=== PATIENT | female | born 1945 | race Caucasian/White ===

== ENCOUNTER 2018-03-17 05:54 | Inpatient (IN) | payer MEDICARE ==
--- OUTSIDE RECORDS SUMMARY | 2018-03-17 05:58 | XMS REPORT ---
:1945 External Reference #:[id number] Author Organization [facility] Address [address] [address] Phone [phone] Care Team Providers Name Role Phone Amberly Villalpando MD Primary Care Physician Unavailable Payers Type Date Identification Payment Subscriber Numbers Provider Health Maintenance Effective: Policy Number: Medicare Azar Vang [employer] ([place] 11/25/2012 [id number] [facility] Group Number: [id number] [address] [address] PayID: [id number] PRICE [place] [id number] Health Maintenance Effective: Policy Number: Medicare Azar Krishna [employer] ([place] 11/25/2011 [id number] [employer]po [employer] Expires: 11/24/2012 PayID: [id number] [address] [address] PRICE [place] [phone] Medigap Part B Effective: Policy Number: Azar Krishna 01/11/2010 [id number] [employer]po [employer] Expires: 02/23/2012 Group Name: [facility] [address] [address] PayID: [id number] PRICE [place] [id number] Advance Directives Type Date Description Status Comment Other Directive 08/11/2017 Health Care Proxy Current and Verified Other Directive 08/11/2017 Health Care Proxy Current and Verified Other Directive 07/31/2002 Health Care Proxy Current and Verified Problems Date Description Provider Status Onset: 10/16/2010 Benign essential hypertension Amberly Villalpando M.D. Active Onset: 10/16/2010 Restless legs Amberly Villalpando M.D. Active Onset: 07/19/2015 Strain of rotator cuff capsule Capo Mcarthur M.D. Active Onset: 10/27/2015 Essential hypertension Amberly Villalpando M.D. Active Onset: 06/06/2016 Arthralgia of the pelvic region and Capo Mcarthur M.D. Active thigh Onset: 09/26/2016 Localized, primary osteoarthritis of Capo Mcarthur M.D. Active the pelvic region and thigh Onset: 09/26/2016 Prosthetic arthroplasty of the hip Capo Mcarthur M.D. Active Onset: 08/28/2017 Sciatica Capo Mcarthur M.D. Active Onset: 06/17/2017 Peripheral vascular disease Moses Vincent M.D. Active Onset: 05/20/2017 Lumbar radiculopathy Moses Vincent M.D. Active Family History Date Family Member(s) Problem(s) Comments General Heart Disease General Diabetes General Cancer : (0090) Father due to Heart Disease : (age 90 Mother due to CHF Years) Mother due to () Hypertension Mother due to Hip () fracture Mother due to Tremor () - may have had head tremor at the end of her life Siblings 3 all passed : (age 65 First Brother due to Heart CAD onset 40s, CABG, Years) Disease DM, CHF : (age 34 Second Brother due to Kidney DM Years) Disease : (age 43 Third Brother due to Heart CAD, CABG Years) Disease Social History Type Date Description Comments Marital Status Lives With 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 Copy on file at [facility] [place] [facility] Cigarette Use Never Smoked Cigarettes ETOH Use Denies alcohol use Smoking Patient has never smoked Recreational Drug Use Denies Drug Use Daily Caffeine Consumes on average 2 cups of regular coffee per day Exercise Type/Frequency Exercises regularly General Hx Text Health Care Proxy Allergies, Adverse Reactions, Alerts Date Description Reaction Status Severity Comments 03/22/2010 NKDA active Medications Medication Date Status Form Strength Qnty SIG Indications Ordering Provider Tramadol HCL 01/22 Active Tablets 50mg 180ta take one to M79.609 Crystal bs two tablets Jose, by mouth M.D. every 6 hours - maximum daily dose of 6 per day Atorvastatin 09/02 Active Tablets 10mg 90tab 1 by mouth Amberly Calcium s every day Aurelio Villalpando Gabapentin 08/28 Active Capsules 300mg 180ca 2 by mouth M54.31 Amberly ps every night Kwasi at bedtime M.Priscilla Hydrocodone-Acet 05/02 Active Tablets 5-325mg 30tab 1 by mouth M54.16 Amberly aminophen s three times Cotton, a day as M.D. needed Amoxicillin 03/01 Active Capsules 500mg 4caps 4 tablets 1 hour before Lyubov, dental work M.DSarah Clearlax 03/06 Active Powder 1 capful every day Aurelio Villalpando Losartan 03/06 Active Tablets 50-12.5mg 90tab Take 1 I10 Amberly Potassium/Hydroc s Tablet By Kwasi, hlorothiazide Mouth Every M.D. Day Aspirin 06/03 Active Tablets 81mg [address] once daily Aurelio Villalpando Multivitamins Active Tablets 90tab 1 po qd Unknown /0000 s Ibuprofen Active prn Unknown / Amlodipine Active Tablets 5mg 90tab Take 1 I10 Amberly Besylate s Tablet By Kwasi, Mouth Every M.D. Day Naproxen 05/20 Hx Tablets 500mg 60tab 1 by mouth M54.16 s twice a day Melisa, - after meals M.D. 06/17 Cyclobenzaprine 03/27 Hx Tablets 10mg 60tab take 1 tab M25.551 Crystal HCL s by mouth 2 Jose, - times a day M.D. 10/31 as needed Trazodone HCL 10/29 Hx Tablets 50mg 30tab Take 1/2-1 G47.00 s Tablet By Cotton, - Mouth At M.D. 08/27 Bedtime Flexeril 09/26 Hx Tablets 10mg 60tab 1 by mouth s two times a Lyuobv, - day as M.D. 10/29 needed for spasms Percocet 08/21 Hx Tablets 5-325mg 70tab take 1-2 M16.11 s pills every Lyubov, - 4-6 hours as M.D. 10/29 needed pain Coumadin 08/21 Hx Tablets 2mg 60tab Take 1-3 M16.11 s tablets by Lyubov, - mouth at 5 M.D. 11/03 pm daily as directed not taking Colace 08/21 Hx Capsules 100mg 60cap one capsule M16.11 s two times a Lyubov, - day as M.D. 10/29 needed constipation Naproxen 06/21 Hx Tablets 500mg 500mg with Crystal food prn ( Jose, - not taking) M.D. 10/29 Atorvastatin 10/27 Hx Tablets 10mg 90tab 1 by mouth E78.5 Amberly Calcium s every day Vickey Villalpando M.DSarah 05/27 Naproxen 08/16 Hx Tablets 500mg 60tab Take 1 M75.111 s Tablet By Lyubov, - Mouth Two M.D. 07/08 Times Daily Amlodipine 04/21 Hx Tablets 5mg 90tab 1 by mouth I10 Amberly Besylate s every day Vickey Villalpando.Priscilla 02/27 Triamcinolone 04/06 Hx Cream 0.1% 80gm apply thin 782.1 Amberly Acetonide /2014 film twice Kwasi, - daily M.D. 04/30 Hydrocodone-Acet 10/07 Hx Tablets 5-325mg 60tab one tablet 715.00 Randi aminophen s by mouth Varn, N.P. - twice daily 11/11 as needed for pain Fish Oil 03/18 Hx Capsules 1200mg 1 by mouth Amberly /2014 every day Vickey Villalpando M.D. 08/27 Omeprazole 03/18 Hx Capsules 20mg 90cap 1 by mouth Amberly /2014 DR s every other Kwasi, - day M.D. 05/27 Ketoconazole 11/12 Hx Cream 2% 30gm apply thin 782.1 Amberly film twice Cotton, - daily M.D. 03/12 Zolpidem 11/12 Hx Tablets 10mg 30tab 1/2 - 1 780.52 Amberly Tartrate s tablet once Cotton, - daily at M.D. 05/15 bedtime Alprazolam 11/09 Hx Tablets 0.25mg 30tab 1 by mouth 300.00 Amberly /2010 s every 8 Cotton, - hours as M.D. 03/06 needed Amlodipine 11/09 Hx Tablets 2.5mg 90tab take one 401.1 Amberly Bes s tablet by Cotton, - mouth once M.D. 04/21 Ketoconazole 10/16 Hx Cream 2% 30gm apply thin 782.9 film twice Cotton, - daily M.D. 11/27 Tramadol HCL 03/23 Hx Tablets 50mg 45tab take one to M79.609 Crystal s two tablets Jose, - by mouth M.D. 08/27 every hours - maximum daily dose of 6 per day Diovan HCT 03/22 Hx Tablets 160-12.5m 90tab 1 tablet 401.1 g s once daily Cotton, - M.D. 03/06 Gabapentin 03/22 Hx Capsules 300mg 180ca take one to ps two capsules Cotton, - by mouth at M.D. 10/31 bed Calcium Hx 600mg 2 po qd Unknown /0000 - 03/12 Glucosamine Hx Tablets 1000mg 1 po qd Unknown Chondroitin /0000 &MSM - 10/07 Fish Oil Hx 768mg 1 po qd Unknown /0000 - 03/18 Melatonin 00 Hx Capsules 5mg 1 by mouth Unknown /0000 every night - at bedtime 06/21 not taking Benadryl Hx Capsules 25mg take 1-2 Unknown /0000 tablets up - to every 6 10/29 hours needed for ithching this will make you drowsy may save until evening Tylenol 8 Hour 00 Hx Tablets 650mg 1 by mouth Unknown Arthritis Pain /0000 ER before every - infusion 03/26 Medications Administered in Office Medication Date Status Form Strength Qnty SIG Indications Ordering Provider Depomedrol Administered Injection Aura 40MG 015 KAT Boucher Immunizations CPT Code Status Date Vaccine Lot # [id number] Given 09/16/2017 Influenza Virus Vaccine, Quadrivalent, Split, [id number] Preservative Free 42834 Given 10/27/2015 Pneumococcal Conjugate Vaccine 13 Valent For [id number] Intramuscular Use 29944 Given 09/02/2015 Influenza Virus Vaccine, Quadrivalent, Split, [id number] Preservative Free 71138 Given 10/07/2014 Tdap - Tetanus/Diptheria/Acellular Pertussis [id number] 37713 Given 08/20/2014 Influenza Virus Vaccine, Quadrivalent, Split, [id number] Preservative Free 14519 Given 09/11/2013 Flu Vaccine Split Virus Preservative Free For Indiv 3Yr Older 24740 Given 03/12/2013 Zoster (Zostavax) [id number] 35044 Given 09/04/2012 Pneumonia Vaccine [id number] Q2037 Given 08/30/2012 Fluvirin Im 3Yrs And Older [id number] 94711 Given 09/15/2011 Influenza Virus 3Yrs & Over [id number] 37814 Given 09/01/2010 Influenza Virus 3Yrs & Over 41810 Given 08/30/2009 Influenza Virus 3Yrs & Over 24912 Given 09/23/2008 Influenza Virus 3Yrs & Over 18252 Given 09/22/2007 Influenza Virus 3Yrs & Over 26517 Given 09/18/2006 Influenza Virus 3Yrs & Over 96918 Given 09/18/2006 Influenza Virus 3Yrs & Over Vital Signs Date Vital Result Comment 03/03/2018 Weight 173.50 lb Heart Rate 94 /min BP Systolic 126 mmHg BP Diastolic 70 mmHg Body Temperature 97.6 F O2 % BldC Oximetry 98 % 02/26/2018 Height 62 inches 5'2" Weight 174.00 lb BP Systolic 134 mmHg BP Diastolic 72 mmHg Respiratory Rate 20 /min Pain Level 8 BMI (Body Mass Index) 31.8 kg/m2 10/31/2017 Height 62 inches 5'2" Weight 172.00 lb Heart Rate 71 /min BP Systolic 130 mmHg BP Diastolic 80 mmHg Body Temperature 98.0 F O2 % BldC Oximetry 99 % BMI (Body Mass Index) 31.5 kg/m2 08/28/2017 Height 62 inches 5'2" Weight 167.00 lb BP Systolic 124 mmHg BP Diastolic 70 mmHg Respiratory Rate 18 /min Pain Level 0 BMI (Body Mass Index) 30.5 kg/m2 06/17/2017 Height 62 inches 5'2" Weight 167.00 lb Heart Rate 82 /min BP Systolic Sitting 150 mmHg BP Diastolic Sitting 90 mmHg Pain Level 8 BMI (Body Mass Index) 30.5 kg/m2 05/20/2017 Height 62 inches 5'2" Weight 167.00 lb Heart Rate 78 /min BP Systolic Sitting 148 mmHg BP Diastolic Sitting 80 mmHg Pain Level 7 BMI (Body Mass Index) 30.5 kg/m2 05/02/2017 Weight 165.00 lb Heart Rate 82 /min BP Systolic Sitting 120 mmHg BP Diastolic Sitting 70 mmHg Respiratory Rate 16 /min Pain Level 8 03/27/2017 Height 62 inches 5'2" Weight 160.00 lb Heart Rate 81 /min BP Systolic 152 mmHg BP Diastolic 76 mmHg Body Temperature 97.3 F BMI (Body Mass Index) 29.3 kg/m2 10/31/2016 Height 62 inches 5'2" Weight 165.00 lb Heart Rate 76 /min Respiratory Rate 18 /min Pain Level 0 BMI (Body Mass Index) 30.2 kg/m2 10/29/2016 Height 61.5 inches 5'1.50" Weight 165.00 lb Heart Rate 86 /min BP Systolic Sitting 130 mmHg BP Diastolic Sitting 84 mmHg O2 % BldC Oximetry 98 % BMI (Body Mass Index) 30.7 kg/m2 09/26/2016 Height 62.5 inches Heart Rate 78 /min BP Systolic Sitting 142 mmHg BP Diastolic Sitting 78 mmHg Body Temperature 98.4 F Pain Level 0 08/21/2016 Height 62.5 inches 5'2.50" Weight 155.00 lb Heart Rate 79 /min BP Systolic 133 mmHg BP Diastolic 74 mmHg Pain Level 8 BMI (Body Mass Index) 27.9 kg/m2 08/02/2016 Weight 164.00 lb with shoes Heart Rate 68 /min BP Systolic Sitting 120 mmHg BP Diastolic Sitting 72 mmHg O2 % BldC Oximetry 99 % 06/21/2016 Weight 166.00 lb Respiratory Rate 16 /min Pain Level 5 06/06/2016 Weight 166.00 lb Pain Level 5 04/30/2016 Weight 166.00 lb with shoes Heart Rate 98 /min BP Systolic Sitting 130 mmHg BP Diastolic Sitting 78 mmHg Body Temperature 97.5 F O2 % BldC Oximetry 97 % 03/28/2016 Height 62.5 inches 5'2.50" Weight 165.00 lb Pain Level 7 between 5 and 9 BMI (Body Mass Index) 29.7 kg/m2 02/29/2016 Height 62.5 inches 5'2.50" Weight 165.00 lb Heart Rate 73 /min BP Systolic 134 mmHg BP Diastolic 82 mmHg Pain Level 6 BMI (Body Mass Index) 29.7 kg/m2 10/27/2015 Height 62.5 inches 5'2.50" Weight 153.00 lb Heart Rate 73 /min BP Systolic Sitting 144 mmHg BP Diastolic Sitting 76 mmHg Body Temperature 98.2 F O2 % BldC Oximetry 98 % BMI (Body Mass Index) 27.5 kg/m2 10/05/2015 Height 62.5 inches 5'2.50" Weight 150.00 lb Pain Level 6 BMI (Body Mass Index) 27.0 kg/m2 08/16/2015 Height 62.5 inches 5'2.50" Weight 160.00 lb Pain Level 8 BMI (Body Mass Index) 28.8 kg/m2 07/19/2015 Height 62.5 inches 5'2.50" Weight 160.00 lb Heart Rate 79 /min BP Systolic 160 mmHg BP Diastolic 90 mmHg BMI (Body Mass Index) 28.8 kg/m2 04/21/2015 Heart Rate 83 /min BP Systolic Sitting 132 mmHg BP Diastolic Sitting 77 mmHg 04/06/2015 Weight 168.50 lb Heart Rate 77 /min BP Systolic Sitting 172 mmHg BP Diastolic Sitting 94 mmHg 10/07/2014 Height 62.25 inches 5'2.25" Weight 165.00 lb Heart Rate 78 /min BP Systolic Sitting 126 mmHg BP Diastolic Sitting 80 mmHg Body Temperature 98.3 F BMI (Body Mass Index) 29.9 kg/m2 04/29/2014 Height 62.25 inches 5'2.25" Weight 163.00 lb Heart Rate 72 /min BP Systolic Sitting 106 mmHg BP Diastolic Sitting 78 mmHg Body Temperature 98.1 F BMI (Body Mass Index) 29.6 kg/m2 03/18/2014 Weight 168.88 lb Heart Rate 76 /min BP Systolic 132 mmHg BP Diastolic 86 mmHg Respiratory Rate 16 /min Body Temperature 98.1 F 09/11/2013 Height 62 inches 5'2" Weight 157.00 lb Heart Rate 86 /min BP Systolic Sitting 130 mmHg BP Diastolic Sitting 86 mmHg BMI (Body Mass Index) 28.7 kg/m2 03/12/2013 Weight 162.00 lb Heart Rate 72 /min BP Systolic Sitting 142 mmHg BP Diastolic Sitting 88 mmHg 09/04/2012 Height 62.50 inches 5'2.50" Weight 164.00 lb Heart Rate 76 /min BP Systolic Sitting 118 mmHg BP Diastolic Sitting 66 mmHg BMI (Body Mass Index) 29.5 kg/m2 05/15/2012 Height 62.50 inches 5'2.50" Weight 160.00 lb Heart Rate 74 /min BP Systolic Sitting 128 mmHg BP Diastolic Sitting 78 mmHg BMI (Body Mass Index) 28.8 kg/m2 11/12/2011 Height 62.50 inches 5'2.50" Weight 161.00 lb BP Systolic Sitting 118 mmHg l BP Diastolic Sitting 74 mmHg l BMI (Body Mass Index) 29.0 kg/m2 03/06/2011 Weight 162.50 lb Heart Rate 76 /min BP Systolic 114 mmHg BP Diastolic 70 mmHg 11/27/2010 Weight 165.00 lb Heart Rate 76 /min BP Systolic 138 mmHg BP Diastolic 88 mmHg 11/09/2010 Weight 162.00 lb Heart Rate 82 /min BP Systolic 180 mmHg BP Diastolic 106 mmHg BP Systolic Sitting 150 mmHg after 10 minutes BP Diastolic Sitting 106 mmHg after 10 minutes 10/16/2010 Height 62.5 inches 5'2.50" Weight 162.75 lb Heart Rate 72 /min BP Systolic 122 mmHg BP Diastolic 82 mmHg BMI (Body Mass Index) 29.3 kg/m2 03/23/2010 Weight 160.75 lb Heart Rate 68 /min BP Systolic Recheck 132 mmHg BP Diastolic Recheck 80 mmHg Results Test Date Test Result H/L Range Note Lipid Profile (Trig/Chol/HDL) 10/23/2017 Triglycerides 57 mg/dL 1 Cholesterol 141 mg/dL 2 HDL Cholesterol 70.6 mg/dL 3 LDL Cholesterol 59 mg/dL 4 Comp Metabolic Panel 10/23/2017 Sodium 139 mmol/L 133-145 Potassium 4.3 mmol/L 3.5-5.0 Chloride 105 mmol/L 101-111 Co2 Carbon Dioxide 30 mmol/L 22-32 Anion Gap 4 mmol/L 2-11 Glucose 78 mg/dL 70-100 Blood Urea Nitrogen 18 mg/dL 6-24 Creatinine 0.78 mg/dL 0.51-0.95 BUN/Creatinine Ratio 23.1 High 8-20 Calcium 9.1 mg/dL 8.6-10.3 Total Protein 6.9 g/dL 6.4-8.9 Albumin 3.9 g/dL 3.2-5.2 Globulin 3.0 g/dL 2-4 Albumin/Globulin Ratio 1.3 1-3 Total Bilirubin 0.70 mg/dL 0.2-1.0 Alkaline Phosphatase 63 U/L 34-104 Alt 21 U/L 7-52 Ast 20 U/L 13-39 Egfr Non- 73.0 >60 Egfr 93.9 >60 5 Lipid Profile (Trig/Chol/HDL) 03/21/2017 Triglycerides 53 mg/dL 6 Cholesterol 175 mg/dL 7 HDL Cholesterol 70.3 mg/dL 8 LDL Cholesterol 94 mg/dL 9 Comp Metabolic Panel 03/21/2017 Sodium 138 mmol/L 133-145 Potassium 4.3 mmol/L 3.5-5.0 Chloride 102 mmol/L 101-111 Co2 Carbon Dioxide 30 mmol/L 22-32 Anion Gap 6 mmol/L 2-11 Glucose 84 mg/dL 70-100 Blood Urea Nitrogen 21 mg/dL 6-24 Creatinine 0.84 mg/dL 0.51-0.95 BUN/Creatinine Ratio 25.0 High 8-20 Calcium 9.3 mg/dL 8.6-10.3 Total Protein 7.0 g/dL 6.4-8.9 Albumin 4.0 g/dL 3.2-5.2 Globulin 3.0 g/dL 2-4 Albumin/Globulin Ratio 1.3 1-3 Total Bilirubin 0.40 mg/dL 0.2-1.0 Alkaline Phosphatase 66 U/L 34-104 Alt 17 U/L 7-52 Ast 18 U/L 13-39 Egfr Non- 67.0 >60 Egfr 86.2 >60 10 Laboratory test 03/21/2017 TSH (Thyroid Stim 2.89 mcIU/mL 0.34-5.60 11 finding Horm) Inr/Protime 09/17/2016 Inr 1.08 0.89-1.11 Inr/Protime 08/22/2016 Inr 0.98 0.89-1.11 12 Laboratory test 08/22/2016 Partial Thrombo Time 29.8 seconds 26.0-36.3 12, 13 finding PTT Type & Screen 08/22/2016 Patient Blood Type O Positive 12 Antibody Screen NEGATIVE 12 Urinalysis Profile 08/22/2016 Urine Color Yellow 12 Urine Appearance Clear 12 Urine Specific [place] 1.013 1.010-1.030 12 Urine pH 7.0 5-9 12 Urine Urobilinogen Negative Negative 12 Urine Ketones Negative Negative 12 Urine Protein Negative Negative 12 Urine Leukocytes Negative Negative 12 Urine Blood Negative Negative 12 Urine Nitrite Negative Negative 12 Urine Bilirubin Negative Negative 12 Urine Glucose Negative Negative 12 CBC Auto Diff 08/02/2016 White Blood Count 5.0 10^3/uL 3.5-10.8 Red Blood Count 4.29 10^6/uL 4.0-5.4 Hemoglobin 12.9 g/dL 12.0-16.0 Hematocrit 40 % 35-47 Mean Corpuscular Volume 92 fL 80-97 Mean Corpuscular Hemoglobin 30 pg 27-31 Mean Corpuscular HGB Conc 33 g/dL 31-36 Red Cell Distribution Width 13 % 10.5-15 Platelet Count 293 10^3/uL 150-450 Mean Platelet Volume 8 um3 7.4-10.4 Abs Neutrophils 3.2 10^3/uL 1.5-7.7 Abs Lymphocytes 1.3 10^3/uL 1.0-4.8 Abs Monocytes 0.3 10^3/uL 0-0.8 Abs Eosinophils 0.1 10^3/uL 0-0.6 Abs Basophils 0.1 10^3/uL 0-0.2 Abs Nucleated RBC 0 10^3/uL Granulocyte % 65.0 % 38-83 Lymphocyte % 25.8 % 25-47 Monocyte % 6.9 % 1-9 Eosinophil % 1.1 % 0-6 Basophil % 1.2 % 0-2 Nucleated Red Blood Cells % 0 Comp Metabolic Panel 08/02/2016 Sodium 136 mmol/L 133-145 Potassium 4.2 mmol/L 3.5-5.0 Chloride 101 mmol/L 101-111 Co2 Carbon Dioxide 31 mmol/L 22-32 Anion Gap 4 mmol/L 2-11 Glucose 83 mg/dL 70-100 Blood Urea Nitrogen 17 mg/dL 6-24 Creatinine 0.80 mg/dL 0.51-0.95 BUN/Creatinine Ratio 21.3 High 8-20 Calcium 9.2 mg/dL 8.6-10.3 Total Protein 6.6 g/dL 6.4-8.9 Albumin 4.0 g/dL 3.2-5.2 Globulin 2.6 g/dL 2-4 Albumin/Globulin Ratio 1.5 1-3 Total Bilirubin 0.30 mg/dL 0.2-1.0 Alkaline Phosphatase 67 U/L 34-104 Alt 21 U/L 7-52 Ast 17 U/L 13-39 Egfr Non- 71.1 >60 Egfr 91.5 >60 14 Inr/Protime 08/02/2016 Inr 0.98 0.89-1.11 Urine Culture And 08/02/2016 Urine Culture SEE RESULT BELOW 15 Sensitivities Type & Screen 08/02/2016 Patient Blood O Positive Type Antibody Screen NEGATIVE Comp Metabolic Panel 02/24/2016 Sodium 138 mmol/L 133-145 Potassium 4.2 mmol/L 3.5-5.0 Chloride 102 mmol/L 101-111 Co2 Carbon Dioxide 31 mmol/L 22-32 Anion Gap 5 mmol/L 2-11 Glucose 85 mg/dL 70-100 Blood Urea Nitrogen 20 mg/dL 6-24 Creatinine 0.91 mg/dL 0.51-0.95 BUN/Creatinine Ratio 22.0 High 8-20 Calcium 9.5 mg/dL 8.6-10.3 Total Protein 6.9 g/dL 6.4-8.9 Albumin 4.1 g/dL 3.2-5.2 Globulin 2.8 g/dL 2-4 Albumin/Globulin Ratio 1.5 1-3 Total Bilirubin 0.50 mg/dL 0.2-1.0 Alkaline Phosphatase 66 U/L 34-104 Alt 18 U/L 7-52 Ast 17 U/L 13-39 Egfr Non- 61.5 >60 Egfr 79.1 >60 16 Lipid Profile (Trig/Chol/HDL) 02/24/2016 Triglycerides 64 mg/dL 17 Cholesterol 141 mg/dL 18 HDL Cholesterol 56.0 mg/dL 19 LDL Cholesterol 72 mg/dL 20 Comp Metabolic Panel 03/28/2015 Sodium 140 mmol/L 133-145 21 Potassium 5.0 mmol/L 3.5-5.0 21 Chloride 104 mmol/L 101-111 21 Co2 Carbon Dioxide 32 mmol/L 22-32 21 Anion Gap 4 mmol/L 2-11 21 Glucose 86 mg/dL 70-100 21 Blood Urea Nitrogen 16 mg/dL 6-24 21 Creatinine 0.81 mg/dL 0.51-0.95 21 BUN/Creatinine Ratio 19.8 8-20 21 Calcium 9.5 mg/dL 8.6-10.3 21 Total Protein 6.6 g/dL 6.4-8.9 21 Albumin 3.9 g/dL 3.2-5.2 21 Globulin 2.7 g/dL 2-4 21 Albumin/Globulin Ratio 1.4 1-3 21 Total Bilirubin 0.50 mg/dL 0.2-1.0 21 Alkaline Phosphatase 64 U/L 34-104 21 Alt 22 U/L 7-52 21 Ast 19 U/L 13-39 21 Egfr Non- 70.3 >60 21 Egfr 90.4 >60 21, 22 Lipid Profile (Trig/Chol/HDL) 03/28/2015 Triglycerides 66 mg/dL 21, 23 Cholesterol 171 mg/dL 21, 24 HDL Cholesterol 55.9 mg/dL 21, 25 LDL Cholesterol 102 mg/dL 21, 26 CBC Auto Diff 03/18/2014 White Blood Count 5.2 10^3/uL 4.8-10.8 Red Blood Count 4.49 10^6/uL 4.0-5.4 Hemoglobin 14.8 g/dL 12.0-16.0 Hematocrit 43 % 35-47 Mean Corpuscular Volume 95 fL 80-97 Mean Corpuscular Hemoglobin 33 pg High 27-31 Mean Corpuscular HGB Conc 35 g/dL 31-36 Red Cell Distribution Width 13 % 10.5-15 Platelet Count 261 10^3/uL 150-450 Mean Platelet Volume 8 um3 7.4-10.4 Abs Neutrophils 2.8 10^3/uL 1.5-7.7 Abs Lymphocytes 1.9 10^3/uL 1.0-4.8 Abs Monocytes 0.4 10^3/uL 0-0.8 Abs Eosinophils 0.1 10^3/uL 0-0.6 Abs Basophils 0.1 10^3/uL 0-0.2 Abs Nucleated RBC 0 10^3/uL Granulocyte % 53.7 % 38-83 Lymphocyte % 36.0 % 25-47 Monocyte % 7.4 % 1-9 Eosinophil % 1.7 % 0-6 Basophil % 1.2 % 0-2 Nucleated Red Blood Cells % 0.1 Comp Metabolic Panel 03/08/2014 Sodium 139 mmol/L 133-145 21 Potassium 4.3 mmol/L 3.7-5.6 21 Chloride 103 mmol/L 101-111 21 Co2 Carbon Dioxide 32 mmol/L 22-32 21 Anion Gap 4 mmol/L 2-11 21 Glucose 76 mg/dL 70-100 21 Blood Urea Nitrogen 18 mg/dL 6-24 21 Creatinine 0.76 mg/dL 0.51-0.95 21 BUN/Creatinine Ratio 23.7 High 8-20 21 Calcium 9.3 mg/dL 8.6-10.3 21 Total Protein 6.9 g/dL 6.4-8.9 21 Albumin 4.3 g/dL 3.2-5.2 21 Globulin 2.6 g/dL 2-4 21 Albumin/Globulin Ratio 1.7 1-3 21 Total Bilirubin 0.60 mg/dL 0.2-1.0 21 Alkaline Phosphatase 60 U/L 34-104 21 Alt 25 U/L 7-52 21 Ast 21 U/L 13-39 21 Egfr Non- 75.9 >60 21 Egfr 97.6 >60 21, 27 Lipid Profile (Trig/Chol/HDL) 03/08/2014 Triglycerides 79 mg/dL 21, 28 Cholesterol 184 mg/dL 21, 29 HDL Cholesterol 68.9 mg/dL 21, 30 LDL Cholesterol 99 mg/dL 21, 31 Surgical Pathology 10/16/2013 S RUN DATE: <SEE NOTE> Lipid Profile 03/05/2013 Triglycerides 51 mg/dL 40-200 (Trig/Chol/HDL) Cholesterol 204 mg/dL High Less than 200 HDL Cholesterol 70 mg/dL High 40-60 33 Cholesterol/HDL Ratio 2.9 Average 1-4.44 LDL Cholesterol 123.8 mg/dL High Less Than 100 34 Comp Metabolic Panel 03/05/2013 Sodium 139 mmol/L 133-145 Potassium 4.1 mmol/L 3.5-5.0 Chloride 102 mmol/L 101-111 Co2 Carbon Dioxide 31.0 mmol/L 22-32 Anion Gap 6.0 mmol/L 2-11 Glucose 88 mg/dL 70-100 Blood Urea Nitrogen 17 mg/dL 6-24 Creatinine 0.70 mg/dL 0.50-1.40 BUN/Creatinine Ratio 24.3 High 8-20 Calcium 9.4 mg/dL 8.1-9.9 Total Protein 7.0 g/dL 6.2-8.1 Albumin 3.8 g/dL 3.2-5.2 Globulin 3.2 g/dL 2-4 Albumin/Globulin Ratio 1.2 1-3 Total Bilirubin 1.0 mg/dL 0.4-1.5 Alkaline Phosphatase 64 U/L 30-110 Alt 34 U/L 14-54 Ast 28 U/L 12-42 Egfr Non- 83.7 >60 Egfr 107.7 >60 35 Laboratory test finding 09/04/2012 Cytology RUN DATE: 09/05/ <SEE 36 NOTE> Comp Metabolic Panel 03/03/2012 Sodium 141 mmol/L 135-145 21 Potassium 4.6 mmol/L 3.5-5.0 21 Chloride 104 mmol/L 101-111 21 Co2 (Carbon Dioxide) 32.0 mmol/L 22-32 21 Anion Gap 5.0 mmol/L 2-11 21, 37 Glucose 81 mg/dL 70-100 21 BUN 18 mg/dL 6-24 21 Creatinine 0.9 mg/dL 0.50-1.40 21 One Over Creatinine 1.11 21 BUN/Creatinine Ratio 20.0 8-20 21 Calcium 9.1 mg/dL 8.1-9.9 21 Total Protein 6.8 GM/DL 6.2-8.1 21 Albumin 4.0 GM/DL 3.2-5.2 21 Globulin 2.8 GM/DL 2-4 21 Albumin/Globulin Ratio 1.4 1-3 21 Bilirubin Total 0.9 mg/dL 0.4-1.5 21, 38 Alkaline Phosphatase 67 U/L 30-110 21 Alt (SGPT) 36 U/L 14-54 21 Ast (Sgot) 26 U/L 12-42 21 eGFR Non- 62.8 > 60 21 eGFR 80.8 > 60 21, 39 Lipid Profile (Trig/Chol/HDL) 03/03/2012 Triglyceride 59 mg/dL 40-200 21 Cholesterol 200 mg/dL Less Than 200 21, 40 High Density Lipoprotein 67 mg/dL High 40-60 21, 41 Cholesterol/HDL Ratio 2.99 AVERAGE 1-4.44 21 Low Density Lipoprotein 121 mg/dL High Less Than 100 21, 42 Laboratory test finding 11/16/2011 Lyme Disease Serology Negative Negative 43 Lipid Profile 03/01/2011 Triglyceride 54 mg/dL 40-200 (Trig/Chol/HDL) Cholesterol 191 mg/dL Less Than 200 44 High Density Lipoprotein 67 mg/dL High 40-60 45 Cholesterol/HDL Ratio 2.85 AVERAGE 1-4.44 Low Density Lipoprotein 113 mg/dL High Less Than 100 46 Comp Metabolic Panel 03/01/2011 Sodium 140 mmol/L 135-145 Potassium 4.3 mmol/L 3.5-5.0 Chloride 104 mmol/L 101-111 Co2 (Carbon Dioxide) 31.0 mmol/L 22-32 Anion Gap 5.0 mmol/L 2-11 47 Glucose 89 mg/dL 70-100 BUN 16 mg/dL 6-24 Creatinine 0.80 mg/dL 0.50-1.40 One Over Creatinine 1.20 BUN/Creatinine Ratio 20.0 8-20 Calcium 9.5 mg/dL 8.1-9.9 Total Protein 7.2 GM/DL 6.2-8.1 Albumin 3.9 GM/DL 3.2-5.2 Globulin 3.3 GM/DL 2-4 Albumin/Globulin Ratio 1.2 1-3 Bilirubin Total 0.7 mg/dL 0.4-1.5 48 Alkaline Phosphatase 63 U/L 30-110 Alt (SGPT) 40 U/L 14-54 Ast (Sgot) 28 U/L 12-42 eGFR Non- 72.2 > 60 eGFR 92.9 > 60 49 Surgical Pathology 11/09/2010 Surgical Pathology <SEE 50 NOTE> Laboratory test 06/06/2010 Ferritin 70 NG/ML 11.0-307 finding CBC With Electronic 06/06/2010 White Blood Count 5.7 CUMM 4.8-10.8 Diff Red Cell Count 4.37 CUMM 4.2-5.4 Hemoglobin 13.9 g/dL 12.0-16.0 Hematocrit 42 % 35-47 Mean Corpuscular Volume 96 um3 79-97 Mean Corpuscular Hemoglob 32 pg High 27-31 Mean Corpuscular HGB Cone 33 g/dL 32-36 Redcell Distribution WDTH 13 % 10.5-15 Platelet Count 277 CUMM 150-450 Mean Platelet Volume 7.8 um3 7.4-10.4 Gran % 61.7 % 38-83 Lymph % 25.5 % 25-47 Mononuclear % 9.4 % High 1-9 Eosinophil % 2.7 % 0-6 Basophil % 0.7 % 0-2 Abs Lymphs 1.5 1.0-4.8 Abs Mononuclear 0.5 0-0.8 Absolute Neutrophil Count 3.5 1.5-7.7 Abs Eosinophils 0.2 0-0.6 Abs Basophils 0 0-0.2 Laboratory test finding 03/23/2010 Ferritin 24 NG/ML 11.0-307 Iron & Iron Binding Capacity 03/23/2010 Iron Total 72 g/dL 28-170 Unsaturated Iron Binding 328 g/dL Total Iron Binding Capacity 400 g/dL 250-450 % Iron Saturation 18 % 15-55 1 Desirable: <150 Borderline High: 150-199 High: 200-499 Very High: >500 2 Desirable: <200 Borderline High: 200-239 High: >239 3 Low: <40 Desirable: 40-60 High: >60 4 Desirable: <100 Near Optimal: 100-129 Borderline High: 130-159 High: 160-189 Very High: >189 5 Because ethnic data is not always readily available, this report includes an eGFR for both -Americans and non- Americans. The National Kidney Disease Education Program (NKDEP) does not endorse the use of the MDRD equation for patients that are not between the ages of 18 and 70, are , have extremes of body size, muscle mass, or nutritional status, or are non- or non-. According to the National Kidney Foundation, irrespective of diagnosis, the stage of the disease is based on the level of kidney function: Stage Description GFR(mL/min/1.73 m(2)) 1 Kidney damage with normal or decreased GFR 90 2 Kidney damage with mild decrease in GFR 60-89 3 Moderate decrease in GFR 30-59 4 Severe decrease in GFR 15-29 5 Kidney failure <15 (or dialysis) 6 Desirable <150 Borderline high 150-199 High 200-499 Very High >500 7 Desirable <200 Borderline high 200-239 High >239 8 Low <40 Desirable: 40-60 High: >60 9 Desirable: <100 mg/dL Near Optimal: 100-129 mg/dL Borderline High: 130-159 mg/dL High: 160-189 mg/dL Very High: >189 mg/dL 10 Because ethnic data is not always readily available, this report includes an eGFR for both -Americans and non- Americans. The National Kidney Disease Education Program (NKDEP) does not endorse the use of the MDRD equation for patients that are not between the ages of 18 and 70, are , have extremes of body size, muscle mass, or nutritional status, or are non- or non-. According to the National Kidney Foundation, irrespective of diagnosis, the stage of the disease is based on the level of kidney function: Stage Description GFR(mL/min/1.73 m(2)) 1 Kidney damage with normal or decreased GFR 90 2 Kidney damage with mild decrease in GFR 60-89 3 Moderate decrease in GFR 30-59 4 Severe decrease in GFR 15-29 5 Kidney failure <15 (or dialysis) 11 FASTING 10 HOUR DUE IN MARCH 0608/27 14 Because ethnic data is not always readily available, this report includes an eGFR for both -Americans and non- Americans. The National Kidney Disease Education Program (NKDEP) does not endorse the use of the MDRD equation for patients that are not between the ages of 18 and 70, are , have extremes of body size, muscle mass, or nutritional status, or are non- or non-. According to the National Kidney Foundation, irrespective of diagnosis, the stage of the disease is based on the level of kidney function: Stage Description GFR(mL/min/1.73 m(2)) 1 Kidney damage with normal or decreased GFR 90 2 Kidney damage with mild decrease in GFR 60-89 3 Moderate decrease in GFR 30-59 4 Severe decrease in GFR 15-29 5 Kidney failure <15 (or dialysis) 15 SEE RESULT BELOW Name: PRACHI VANG : [address]: Amberly Villalpando MD Acct: [id number] Unit: [id number] AGE: 71 Location: [facility] Re08/02/16 SEX: F Status: REG REF SPEC: [id number] MIR: 08/02/16-[address]: Ayan Vickers STUDENT AMBASSADOR REQ: [id number] RECD: 08/02/16 STATUS: COMP _ SOURCE: URINE SPDESC: ORDERED: Urine Culture Procedure Result Reported Site Urine Culture Final 08/04/16- 1119 ML No growth of clinically significant organisms * ML - MAIN LAB (PSC1) . END OF REPORT * ML=Testing performed at Main Lab DEPARTMENT OF PATHOLOGY, [address] [place] [address] William Helm M.D. Director [facility] # [id number] 16 Because ethnic data is not always readily available, this report includes an eGFR for both -Americans and non- Americans. The National Kidney Disease Education Program (NKDEP) does not endorse the use of the MDRD equation for patients that are not between the ages of 18 and 70, are , have extremes of body size, muscle mass, or nutritional status, or are non- or non-. According to the National Kidney Foundation, irrespective of diagnosis, the stage of the disease is based on the level of kidney function: Stage Description GFR(mL/min/1.73 m(2)) 1 Kidney damage with normal or decreased GFR 90 2 Kidney damage with mild decrease in GFR 60-89 3 Moderate decrease in GFR 30-59 4 Severe decrease in GFR 15-29 5 Kidney failure <15 (or dialysis) 17 Desirable <150 Borderline high 150-199 High 200-499 Very High >500 18 Desirable <200 Borderline high 200-239 High >239 19 Low <40 Desirable: 40-60 High: >60 20 Desirable: <100 mg/dL Near Optimal: 100-129 mg/dL Borderline High: 130-159 mg/dL High: 160-189 mg/dL Very High: >189 mg/dL 21 FASTING 22 Because ethnic data is not always readily available, this report includes an eGFR for both -Americans and non- Americans. The National Kidney Disease Education Program (NKDEP) does not endorse the use of the MDRD equation for patients that are not between the ages of 18 and 70, are , have extremes of body size, muscle mass, or nutritional status, or are non- or non-. According to the National Kidney Foundation, irrespective of diagnosis, the stage of the disease is based on the level of kidney function: Stage Description GFR(mL/min/1.73 m(2)) 1 Kidney damage with normal or decreased GFR 90 2 Kidney damage with mild decrease in GFR 60-89 3 Moderate decrease in GFR 30-59 4 Severe decrease in GFR 15-29 5 Kidney failure <15 (or dialysis) 23 Desirable <150 Borderline high 150-199 High 200-499 Very High >500 24 Desirable <200 Borderline high 200-239 High >239 25 Low <40 Desirable: 40-60 High: >60 26 Desirable: <100 mg/dL Near Optimal: 100-129 mg/dL Borderline High: 130-159 mg/dL High: 160-189 mg/dL Very High: >189 mg/dL 27 Because ethnic data is not always readily available, this report includes an eGFR for both -Americans and non- Americans. The National Kidney Disease Education Program (NKDEP) does not endorse the use of the MDRD equation for patients that are not between the ages of 18 and 70, are , have extremes of body size, muscle mass, or nutritional status, or are non- or non-. According to the National Kidney Foundation, irrespective of diagnosis, the stage of the disease is based on the level of kidney function: Stage Description GFR(mL/min/1.73 m(2)) 1 Kidney damage with normal or decreased GFR 90 2 Kidney damage with mild decrease in GFR 60-89 3 Moderate decrease in GFR 30-59 4 Severe decrease in GFR 15-29 5 Kidney failure <15 (or dialysis) 28 Desirable <150 Borderline high 150-199 High 200-499 Very High >500 29 Desirable <200 Borderline high 200-239 High >239 30 Low <40 Desirable: 40-60 High: >60 31 Desirable <100 Near Optimal 100-129 Borderline high 130-159 High 160-189 Very High >189 32 RUN DATE: 10/19/13 [facility] LAB LIVE PAGE 1 RUN TIME: [address] [place], [place] [address] Specimen Inquiry Name: PRACHI VANG : [address]: Nikolas Bustillo MD Acct: [id number] Unit: [id number] AGE: 68 Location: ENDO Re10/16/13 SEX: F Status: REG REF SPEC: [id number] MIR: 10/16/13- [facility] DR: Nikolas Bustillo MD REQ: [id number] RECD: 10/16/13 STATUS: GISELL ROPER DR: Amberly Villalpando MD _ ORDERED: LEVEL IV FINAL DIAGNOSIS Colon, 40 cm., biopsy: Hyperplastic polyp. CLINICAL HISTORY Screening colonoscopy POST-OPERATIVE DIAGNOSIS Screening colonoscopy into cecum, prep good. Small descending colon polyp removed. GROSS DESCRIPTION The specimen is received in formalin labeled Prachi Vang, Biopsy Colon Polyp at 40 cm. and consists of a 0.2 x 0.2 x 0.2 cm. portion of white-mota tissue. Submitted entirely, one cassette. Signed (signature on file) William Helm MD 1302 END OF REPORT * ML=Testing performed at Main Lab DEPARTMENT OF PATHOLOGY, [address] [place] [address] William Helm M.D. Director [facility] Permit #[id number] HDL Interpretation: Undesirable: High Risk: Less than 40 MG/DL Desirable: Low Risk: Greater than 60 MG/DL 34 LDL Interpretation: Low Risk Optimal Level: LDL Less than 100 MG/DL Near or Above Optimal: LDL 100-129 MG/DL Borderline High Risk: LDL 130-159 MG/DL High Risk: LDL 160-189 MG/DL Very High Risk: LDL Greater than 189 MG/DL 35 Because ethnic data is not always readily available, this report includes an eGFR for both -Americans and non- Americans. The National Kidney Disease Education Program (NKDEP) does not endorse the use of the MDRD equation for patients that are not between the ages of 18 and 70, are , have extremes of body size, muscle mass, or nutritional status, or are non- or non-. According to the National Kidney Foundation, irrespective of diagnosis, the stage of the disease is based on the level of kidney function: Stage Description GFR(mL/min/1.73 m(2)) 1 Kidney damage with normal or decreased GFR 90 2 Kidney damage with mild decrease in GFR 60-89 3 Moderate decrease in GFR 30-59 4 Severe decrease in GFR 15-29 5 Kidney failure <15 (or dialysis) 36 RUN DATE: 09/05/12 [facility] LAB LIVE PAGE 1 RUN TIME: [address] [place], [place] [address] Specimen Inquiry Name: PRACHI VANG Erendira : [address]: Kwasi JOHNSTON,Omaira Mckeon Acct: [id number] Unit: [id number] AGE: 67 Location: [facility] Re09/04/12 SEX: F Status: REG REF SPEC: [id number] MIR: 09/04/[address] [facility] DR: Kwasi JOHNSTON, Omaira Mckeon REQ: [id number] RECD: 09/05/12 STATUS: SOUT _ ORDERED: IMAGE ANALYSIS Negative for Intraepithelial lesion or Malignancy A. Ectocervical/Endocervical Specimen Adequacy: Satisfactory of evaluation Transformation zone component identified Patient Information: Actual Specimen Date: 09/04/12 LMP If Unknown: at age 54 Cautery: N IUD: N ?: N Post Menopausal?: Y Hysterectomy?: N Lesion, grossly demonstrate: N Previous Abnormal Pap Smears?:N HPV: Reflex to high risk HPV DNA testing when ASCUS Signed (signature on file) CARMEN Colin (ASCP) 09/05/12 1158 This Pap test was evaluated with the assistance of the [employer] Test Imaging System. Due to cytologic findings at the bowling ball finisher microscope, comprehensive manual rescreening by a Boot Turner may be required. The Pap Smear is a screening test designed to aid in the detection of premalignant and malignant conditions of the uterine cervix. It is not a diagnostic procedure and should not be used as the sole means of detecting cervical cancer. Both false- positive and false- negative reports do occur. Depending on your risk status, a Pap smear shoudl be obtained and evaluated every 1-3 years. END OF REPORT * ML=Testing performed at Main Lab DEPARTMENT OF PATHOLOGY, [address] [place] [address] William Helm M.D. Director [facility] Permit #[id number] Anion gap measurement may be of limited value in the presence of any alkalosis, especially in a combined acid base disorder. . 38 A metabolite of Naproxen, O-desmethylnaproxen, has been shown to interfere with the [employer] method for measuring total bilirubin. Samples from patients who have taken Naproxen have shown spurious elevation in total bilirubin levels. 39 Because ethnic data is not always readily available, this report includes an eGFR for both -Americans and non- Americans. The National Kidney Disease Education Program (NKDEP) does not endorse the use of the MDRD equation for patients that are not between the ages of 18 and 70, are , have extremes of body size, muscle mass, or nutritional status, or are non- or non-. According to the National Kidney Foundation, irrespective of diagnosis, the stage of the disease is based on the level of kidney function: Stage Description GFR(mL/min/1.73 m(2)) 1 Kidney damage with normal or decreased GFR 90 2 Kidney damage with mild decrease in GFR 60-89 3 Moderate decrease in GFR 30-59 4 Severe decrease in GFR 15-29 5 Kidney failure <15 (or dialysis) 40 CHOLESTEROL INTERPRETATION: Desirable: Less than 200 MG/DL Borderline-High Risk: 200-239 MG/DL High-Risk: 240 MG/DL and over 41 HDL INTERPRETATION: Undesirable: High Risk: Less than 40 MG/DL Desirable: Low Risk: Greater than 60 MG/DL 42 LDL INTERPRETATION: Low Risk Optimal Level: LDL Less than 100 MG/DL Near or Above Optimal: LDL 100-129 MG/DL Borderline High Risk: LDL 130-159 MG/DL High Risk: LDL 160-189 MG/DL Very High Risk: LDL Greater than 189 MG/DL 43 Serologic response to B. burgdorferi infection is not detected, but cannot rule out early infection during which low or undetectable antibody levels to B. burgdorferi may be present. If clinically indicated, a new serum specimen should be submitted in 7-14 days. Test Performed by: [facility] [address] [place] [address] Spot [employer]der Body Assembly: Jonnie Isabel III, M.D. 44 CHOLESTEROL INTERPRETATION: Desirable: Less than 200 MG/DL Borderline-High Risk: 200-239 MG/DL High-Risk: 240 MG/DL and over 45 HDL INTERPRETATION: Undesirable: High Risk: Less than 40 MG/DL Desirable: Low Risk: Greater than 60 MG/DL 46 LDL INTERPRETATION: Low Risk Optimal Level: LDL Less than 100 MG/DL Near or Above Optimal: LDL 100-129 MG/DL Borderline High Risk: LDL 130-159 MG/DL High Risk: LDL 160-189 MG/DL Very High Risk: LDL Greater than 189 MG/DL 47 Anion gap measurement may be of limited value in the presence of any alkalosis, especially in a combined acid base disorder. . 48 A metabolite of Naproxen, O-desmethylnaproxen, has been shown to interfere with the [employer] method for measuring total bilirubin. Samples from patients who have taken Naproxen have shown spurious elevation in total bilirubin levels. 49 Because ethnic data is not always readily available, this report includes an eGFR for both -Americans and non- Americans. The National Kidney Disease Education Program (NKDEP) does not endorse the use of the MDRD equation for patients that are not between the ages of 18 and 70, are , have extremes of body size, muscle mass, or nutritional status, or are non- or non-. According to the National Kidney Foundation, irrespective of diagnosis, the stage of the disease is based on the level of kidney function: Stage Description GFR(mL/min/1.73 m(2)) 1 Kidney damage with normal or decreased GFR 90 2 Kidney damage with mild decrease in GFR 60-89 3 Moderate decrease in GFR 30-59 4 Severe decrease in GFR 15-29 5 Kidney failure <15 (or dialysis) 50 ---- RUN DATE: 11/13/10 [facility] NMI LIVE PAGE 1 RUN TIME: 1520 Specimen Inquiry RUN USER: INTERFACE -- Name: PRACHI VANG Status: REG REF Re11/09/10 Age/Sex: 65/F Unit#: [id number] Location: [address] [place] [address]. : [birth year] -- Specimen: [id number] SOUT Spec Date: 11/09/[address]: Annette Escobedo MD Spec Type: SURGICAL P Received: 11/09/10 Copies to: Amberly alonzo MD SPECIMEN LEFT BREAST ULTRASOUND CORE BIOPSY HISTORY PRE-OP DIAGNOSIS: 1-[address] GROSS DESCRIPTION The specimen is received in formalin labelled Prachi Vang, Left Breast, and consists of several cylindrical fragments of white tissue measuring in aggregate 1.0 x 1.0 x 0.4 cm. Submitted entirely, one cassette. DIAGNOSIS Breast, left, ultrasound guided biopsy: Benign breast tissue with marked interstitial fibrosis (see comment). COMMENT Correlations with clinical and radiological findings are necessary. ADDENDUM Addendum #1 Entered: 11/13/10-2918 Dr. Helm has reviewed this case and concurs. 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 No evidence of neoplasia is seen in the submitted tissue. Focal microcalcification in association with benign stromal tissue are noted. -- DEPARTMENT OF PATHOLOGY, [address] [place] [address] [facility] Permit #[id number] Aurelio Grullon M.D. Fruit Culler leonora -- -- RUN DATE: 11/13/10 [facility] NMI LIVE PAGE 2 RUN TIME: 7120 Specimen Inquiry RUN USER: INTERFACE -- Name: PRACHI VANG Status: REG REF Re11/09/10 Age/Sex: 65/F Unit#: [id number] Location: [address] [place] [address]. : [birth year] -- -- CONTINUED -- ADDENDUM (Continued) Addendum Review (signature on file) WILLIAM HELM MD 11/13/10 -- Signed Electronically by: AMERICO BLAKELY 11/10/10 1332 -- -- DEPARTMENT OF PATHOLOGY, [address] [place] [address] [facility] Permit #[id number] William Helm M.D. Director Americo Blakely M.D. Fruit Culler Dir leonora -- Procedures Date CPT Code Description Status 03/28/2017 Mammogram Completed 03/28/2017 Bone Mineral Density Test Completed 08/27/2016 43951 THR Total Hip Replacement Completed 08/27/2016 33017 THR Total Hip Replacement Completed 08/02/2016 13879 EKG Tracing & Interpretation Completed 10/05/2015 49780 Inject/Drain Joint/Bursa Major Completed 04/05/2015 Mammogram Completed 03/08/2014 Mammogram Completed 10/16/2013 Colonoscopy Completed 03/05/2013 Bone Mineral Density Test Completed 03/05/2013 Mammogram Completed 03/03/2012 Mammogram Completed 11/12/2011 53466 EKG Tracing & Interpretation Completed 04/26/2011 Mammogram Completed 11/06/2010 Mammogram Completed 10/31/2010 Mammogram Completed 10/19/2009 Mammogram Completed 09/29/2009 40279 EKG Tracing & Interpretation Completed 11/01/2008 Bone Mineral Density Test Completed 09/22/2007 72110 EKG Tracing & Interpretation Completed 09/22/2007 90975 EKG Tracing & Interpretation Completed 09/14/2005 Mammogram Completed 08/29/2004 Mammogram Completed 03/23/2003 Mammogram Completed Encounters Type Date Location Provider CPT E/M Dx Office Visit 08/28/2017 [facility] [place], [address] M16.11 9:45a C.Jessica Carey Z96.641 M54.31 Office Visit 06/17/2017 11:00a [facility] Moses Vincent M.D. 83824 I73.9 Of [facility] M54.16 Office Visit 05/20/2017 1:30p [facility] Moses Vincent M.D. 25345 M54.16 Of [facility] Office Visit 05/02/2017 10:00a [facility] Internal Medicine Amberly Villalpando 92071 M54.16 - Sally Carey I10 Office Visit 03/27/2017 8:30a [facility] Garcia M.D. 36065 M25.551 Brooke M54.16 Office Visit 10/29/2016 10:40a [facility] Internal Medicine Amberly Villalpando 45700 Z00.00 - Sally Carey I10 M85.852 Z12.31 G47.00 Office Visit 08/30/2016 2:04p [facility] Muna, 67655 I49.9 Assoc, STUDENT [employer] Hospitalists I10 Z96.641 Office Visit 08/02/2016 9:40a [facility] [place] [address] Z01.818 Sally M16.11 I10 H61.22 Office Visit 06/21/2016 10:15a [facility] [place] 07165 M16.11 Of Brooke Carey Office Visit 06/06/2016 11:45a [facility] [place] 79654 M25.551 Of Brooke Carey Office Visit 04/30/2016 8:40a [facility] Internal Medicine Amberly Villalpando 07765 I10 - Sally Carey E78.5 M79.606 K21.9 Office Visit 03/28/2016 9:40a [facility] Aura Boucher 95234 M16.11 Of Brooke RESENDIZ-C Office Visit 02/29/2016 11:40a [facility] Aura Boucher 06010 M25.551 Of Brooke RESENDIZ-C Office Visit 08/16/2015 2:30p [facility] Aura Boucher 67119 M75.111 Of Brooke STEPHENS Office Visit 07/19/2015 1:30p [facility] [place], 96954 840.4 Of Brooek Carey Office Visit 04/06/2015 9:40a [facility] Internal Medicine Amberly Villalpando, 96034 401.1 - [place] M.D. 782.1 Office Visit 10/07/2014 9:00a [facility] Internal Medicine Randi Mason N.P. 76968 V70.0 - [place] V72.31 401.1 715.00 733.90 530.81 V76.10 272.4 V06.1 Office Visit 04/29/2014 11:20a [facility] Internal Medicine Amberly Villalpando, 73745 530.11 - [place] M.D. 729.5 Office Visit 03/18/2014 10:00a [facility] Internal Medicine Amberly Villalpando 76709 401.1 - [place] M.D. 530.11 729.5 Office Visit 09/11/2013 9:40a [facility] Internal Medicine Amberly Villalpando, 34779 V70.0 - [place] M.D. 401.1 780.52 715.00 V76.10 V76.51 V04.81 Office Visit 03/12/2013 10:00a [facility] Internal Medicine Amberly Villalpando, 50798 401.1 - [place] M.D. 733.90 V04.89 272.2 Office Visit 05/15/2012 10:20a [facility] Internal Medicine Amberly Villalpando, 83625 401.1 - [place] M.D. 780.52 Office Visit 11/12/2011 10:00a DO Not Use Amberly Kwasi, 49926 V70.0 [employer] [facility] M.D. V72.31 V76.10 V76.2 401.1 782.1 780.52 Office Visit 03/06/2011 1:45p DO Not Use Amberly Kwasi, 78759 401.1 [facility] M.D. 564.00 785.2 Office Visit 11/27/2010 11:30a DO Not Use Amberly Cotton, 15619 401.1 [facility] M.D. Office Visit 11/09/2010 11:45a DO Not Use Amberly Cotton, 40125 401.1 [facility] M.D. 300.00 Office Visit 10/16/2010 10:15a DO Not Use Amberly Cotton, 14593 V70.0 [employer] M.D. 564.00 782.9 780.52 401.1 611.72 Office Visit 06/06/2010 8:30a DO Not Use Amberly Cotton, 43756 333.94 [facility] M.D. Office Visit 03/23/2010 9:30a DO Not Use Amberly Cotton, 71818 729.5 [facility] M.D. 333.94 388.30 401.1 Office Visit 2010 9:45a DO Not Use RadZoraida abdullahi, 09582 724.2 [facility] M.D. 401.1 Office Visit 09/29/2009 1:45p DO Not Use Zoraida Gilbert, 50727 V70.0 [facility] M.D. 401.1 Office Visit 08/30/2009 10:00a DO Not Use [facility] Randi Mason, 75692 724.1 N.P. 728.85 V04.81 Office Visit 03/24/2009 1:00p DO Not Use Zoraida Gilbert, 45675 401.1 [facility] M.D. Office Visit 09/23/2008 1:30p DO Not Use Zoraida Gilbert, 10532 V72.31 [facility] M.D. 401.1 V04.81 Office Visit 03/23/2008 1:15p DO Not Use Zoraida Gilbert, 42376 845.00 [employer] M.D. 401.1 Office Visit 09/22/2007 1:15p DO Not Use Zoraida Gilbert, 22523 719.41 [employer] M.D. 723.1 401.1 558.9 V72.31 V04.81 Office Visit 06/13/2007 12:45p DO Not Use Zoraida Gilbert, 32472 401.1 [employer] M.D. Office Visit 11/27/2006 1:15p DO Not Use RadomsZoraida puentes, 63345 401.1 [employer] M.D. 733.90 724.2 Office Visit 09/18/2006 1:30p DO Not Use RadomsZoraida puentes, 28751 V72.31 [employer] M.D. V76.41 V04.81 Office Visit 08/08/2006 9:45a DO Not Use RadomsZoraida puentes, 96405 724.2 [employer] M.D. 724.02 Office Visit 06/12/2006 10:15a DO Not Use RadomsMilan puentesa, 12007 724.2 [employer] M.D. 724.02 719.45 Plan of Care Future Appointment(s):04/16/2018 10:00 am - [facility] M.D. at [facility]03/17/2018 7:30 am - DAYDAY Hunter at [facility]03/17/2018 7:30 am - [facility] M.D. at [facility]11/06/2018 11:00 am - Amberly Villalpando M.D. at [facility] Internal [facility]05/01/2018 2:20 pm - Amberly Villalpando M.D. at [facility]09/03/2018 9:45 am - [facility] M.D. at [facility]03/03/2018 - Ayan Vickers, NPZ01.818 Encounter for other preprocedural examinationComments:As long as your labs and EKG are normal I do not see any contraindications to your surgery.You should avoid aspirin, NSAIDs (ibuprofen, Motrin, aleve) and supplements 7 days prior to the procedure.M16.12 Unilateral primary osteoarthritis, left hipI10 Essential ( primary) [id number] Peripheral vascular disease, unspecified
--- OUTSIDE RECORDS SUMMARY | 2018-03-17 05:59 | XMS REPORT ---
:1945 External Reference #:[id number] Author Organization [facility] Address [address] [address] Phone [phone] Care Team Providers Name Role Phone Amberly Villalpando MD Primary Care Physician Unavailable Payers Type Date Identification Payment Subscriber Numbers Provider Health Maintenance Effective: Policy Number: Medicare Azar Vang [place] ([facility]) 11/25/2012 [id number] [facility] Group Number: [id number] [address] [address] PayID: [id number] PRICE Sumner [id number] Health Maintenance Effective: Policy Number: Medicare Azar Krishna [place] ([facility]) 11/25/2011 [id number] Ppo [place]oj[place] Expires: 11/24/2012 PayID: [id number] [address] [address] PRICE Sumner [address] Medigap Part B Effective: Policy Number: Azar Krishna 01/11/2010 [id number] Ppo [place]oj[place] Expires: 02/23/2012 Group Name: [facility] [address] [address] PayID: [id number] PRICE Arguello [id number] Advance Directives Type Date Description Status Comment [...] 09/26/2016 Prosthetic arthroplasty of the hip Capo Mcatrhur M.D. Active Onset: 08/28/2017 Sciatica Capo Mcarthur [...] Care Proxy . Copy on file at [facility] Cigarette Use Never Smoked Cigarettes ETOH Use [...] 1 by mouth s two times a Lyubov, - day as M.D. 10/29 needed for [...] CPT Code Status Date Vaccine Lot # [id number] Given 09/16/2017 Influenza Virus Vaccine, Quadrivalent, Split, [id number] Preservative Free 33046 Given 10/27/2015 Pneumococcal Conjugate Vaccine 13 Valent For [id number] Intramuscular Use 73000 Given 09/02/2015 Influenza Virus Vaccine, Quadrivalent, Split, [id number] Preservative Free 77119 Given 10/07/2014 Tdap - Tetanus/Diptheria/Acellular Pertussis [id number] 48116 Given 08/20/2014 Influenza Virus Vaccine, Quadrivalent, Split, [id number] Preservative Free 38971 Given 09/11/2013 Flu Vaccine Split Virus Preservative Free For Indiv 3Yr Older 12853 Given 03/12/2013 Zoster (Zostavax) [id number] 93949 Given 09/04/2012 Pneumonia Vaccine [id number] Q2037 Given 08/30/2012 Fluvirin Im 3Yrs And Older [id number] 79182 Given 09/15/2011 Influenza Virus 3Yrs & Over [id number] 37585 Given 09/01/2010 Influenza Virus 3Yrs & Over 87153 Given 08/30/2009 Influenza Virus 3Yrs & Over 15113 Given 09/23/2008 Influenza Virus 3Yrs & Over 37921 Given 09/22/2007 Influenza Virus 3Yrs & Over 00277 Given 09/18/2006 Influenza Virus 3Yrs & Over 19283 Given 09/18/2006 Influenza Virus 3Yrs & Over Vital Signs Date Vital Result Comment 02/26/2018 Height 62 inches 5'2" Weight 174.00 [...] 12 Urine Appearance Clear 12 Urine Specific [place] 1.013 1.010-1.030 12 Urine pH 7.0 5-9 [...] mg/dL 19 LDL Cholesterol 72 mg/dL 20 Lipid Profile (Trig/Chol/HDL) 03/28/2015 Triglycerides 66 mg/dL 21, 22 Cholesterol 171 mg/dL 21, 23 HDL Cholesterol 55.9 mg/dL 21, 24 LDL Cholesterol 102 mg/dL 21, 25 Comp Metabolic Panel 03/28/2015 Sodium 140 mmol/L [...] 70.3 >60 21 Egfr 90.4 >60 21, 26 CBC Auto Diff 03/18/2014 White [...] 0-2 Nucleated Red Blood Cells % 0.1 Lipid Profile (Trig/Chol/HDL) 03/08/2014 Triglycerides 79 mg/dL 21, 27 Cholesterol 184 mg/dL 21, 28 HDL Cholesterol 68.9 mg/dL 21, 29 LDL Cholesterol 99 mg/dL 21, 30 Comp Metabolic Panel 03/08/2014 Sodium 139 mmol/L [...] 75.9 >60 21 Egfr 97.6 >60 21, 31 Surgical Pathology 10/16/2013 S RUN DATE: 10/19/ <SEE NOTE> 32 Comp Metabolic Panel 03/05/2013 Sodium 139 mmol/L [...] Egfr Non- 83.7 >60 Egfr 107.7 >60 33 Lipid Profile (Trig/Chol/HDL) 03/05/2013 Triglycerides 51 mg/dL 40-200 Cholesterol 204 mg/dL High Less than 200 HDL Cholesterol 70 mg/dL High 40-60 34 Cholesterol/HDL Ratio 2.9 Average 1-4.44 LDL Cholesterol 123.8 mg/dL High Less Than 100 35 Laboratory test finding 09/04/2012 Cytology RUN DATE: <SEE NOTE> Lipid Profile 03/03/2012 Triglyceride 59 mg/dL 40-200 21 (Trig/Chol/HDL) Cholesterol 200 mg/dL Less Than 200 21, 37 High Density Lipoprotein 67 mg/dL High 40-60 21, 38 Cholesterol/HDL Ratio 2.99 AVERAGE 1-4.44 21 Low Density Lipoprotein 121 mg/dL High Less Than 100 21, 39 Comp Metabolic Panel 03/03/2012 Sodium 141 mmol/L 135-145 21 Potassium 4.6 mmol/L 3.5-5.0 21 Chloride 104 mmol/L 101-111 21 Co2 (Carbon Dioxide) 32.0 mmol/L 22-32 21 Anion Gap 5.0 mmol/L 2-11 21, 40 Glucose 81 mg/dL 70-100 21 BUN 18 mg/dL 6-24 21 Creatinine 0.9 mg/dL 0.50-1.40 21 One Over Creatinine 1.11 21 BUN/Creatinine Ratio 20.0 8-20 21 Calcium 9.1 mg/dL 8.1-9.9 21 Total Protein 6.8 GM/DL 6.2-8.1 21 Albumin 4.0 GM/DL 3.2-5.2 21 Globulin 2.8 GM/DL 2-4 21 Albumin/Globulin Ratio 1.4 1-3 21 Bilirubin Total 0.9 mg/dL 0.4-1.5 21, 41 Alkaline Phosphatase 67 U/L 30-110 21 Alt (SGPT) 36 U/L 14-54 21 Ast (Sgot) 26 U/L 12-42 21 eGFR Non- 62.8 > 60 21 eGFR 80.8 > 60 21, 42 Laboratory test finding 11/16/2011 Lyme [...] [address]: Amberly Villalpando MD Acct: [id number] Unit: [id number] AGE: 71 Location: [facility] Re/08/16 SEX: F Status: REG REF SPEC: [id number] MIR: 08/02/[address]: Ayan Vickers NP REQ: [id number] RECD: 08/02/16 STATUS: COMP _ SOURCE: URINE SPDESC: ORDERED: Urine Culture Procedure Result Reported Site Urine Culture Final 08/04/16- 111 ML No growth of clinically significant organisms * ML - MAIN LAB (PSC1) . END OF REPORT * ML=Testing performed at Main Lab DEPARTMENT OF PATHOLOGY, [address] [place] [address] William Helm M.D. Director [facility] # [id number] 16 Because ethnic data is not always [...] Very High: >189 mg/dL 21 FASTING 22 Desirable <150 Borderline high 150-199 High 200-499 Very High >500 23 Desirable <200 Borderline high 200-239 High >239 24 Low <40 Desirable: 40-60 High: >60 25 Desirable: <100 mg/dL Near Optimal: 100-129 mg/dL Borderline High: 130-159 mg/dL High: 160-189 mg/dL Very High: >189 mg/dL 26 Because ethnic data is not always readily [...] 15-29 5 Kidney failure <15 (or dialysis) 27 Desirable <150 Borderline high 150-199 High 200-499 Very High >500 28 Desirable <200 Borderline high 200-239 High >239 29 Low <40 Desirable: 40-60 High: >60 30 Desirable <100 Near Optimal 100-129 Borderline high 130-159 High 160-189 Very High >189 31 Because ethnic data is not always readily [...] 15-29 5 Kidney failure <15 (or dialysis) 32 RUN DATE: 10/19/13 [facility] LAB LIVE PAGE 1 RUN TIME: [address] [place] [address] Specimen Inquiry Name: PRACHI VANG : [address]: Nikolas Bustillo MD Acct: [id number] Unit: [id number] AGE: 68 Location: ENDO Re10/16/13 SEX: F Status: REG REF SPEC: [id number] MIR: 10/16/13- [facility] DR: Nikolas Bustillo MD REQ: [id number] RECD: 10/16/13 STATUS: GISELL ROPER DR: Amberly [...] performed at Main Lab DEPARTMENT OF PATHOLOGY, [address] [place] [address] William Helm M.D. Director [facility] Permit #[id number] 33 Because ethnic data is not always readily [...] 15-29 5 Kidney failure <15 (or dialysis) 34 HDL Interpretation: Undesirable: High Risk: Less than 40 MG/DL Desirable: Low Risk: Greater than 60 MG/DL 35 LDL Interpretation: Low Risk Optimal Level: LDL Less than 100 MG/DL Near or Above Optimal: LDL 100-129 MG/DL Borderline High Risk: LDL 130-159 MG/DL High Risk: LDL 160-189 MG/DL Very High Risk: LDL Greater than 189 MG/DL 36 RUN DATE: 09/05/12 [facility] LAB LIVE PAGE 1 RUN TIME: 9[address] [place], [place] [address] Specimen Inquiry Name: PRACHI VANG : [address]: Omaira Villalpando MD Acct: [id number] Unit: [id number] AGE: 67 Location: [facility] Re09/04/12 SEX: F Status: REG REF SPEC: [id number] MIR: 09/04/121119 [facility] DR: Omaira Villalpando MD REQ: [id number] RECD: 09/05/12 STATUS: SOUT _ ORDERED: IMAGE [...] testing when ASCUS Signed (signature on file) Eden Vogt [place] (ASCP) 09/05/12 1158 This Pap test was evaluated with the assistance of the [place] [facility] System. Due to cytologic findings at the denitrator operator microscope, comprehensive manual rescreening by a Lvn may be required. The Pap Smear is [...] performed at Main Lab DEPARTMENT OF PATHOLOGY, [address] [place] [address] William Helm M.D. Director [facility] Permit #[id number] CHOLESTEROL INTERPRETATION: Desirable: Less than 200 MG/DL Borderline-High Risk: 200-239 MG/DL High-Risk: 240 MG/DL and over 38 HDL INTERPRETATION: Undesirable: High Risk: Less than 40 MG/DL Desirable: Low Risk: Greater than 60 MG/DL 39 LDL INTERPRETATION: Low Risk Optimal Level: LDL Less than 100 MG/DL Near or Above Optimal: LDL 100-129 MG/DL Borderline High Risk: LDL 130-159 MG/DL High Risk: LDL 160-189 MG/DL Very High Risk: LDL Greater than 189 MG/DL 40 Anion gap measurement may be of limited value in the presence of any alkalosis, especially in a combined acid base disorder. . 41 A metabolite of Naproxen, O-desmethylnaproxen, has been shown to interfere with the Jendrassik-Safford method for measuring total bilirubin. Samples from patients who have taken Naproxen have shown spurious elevation in total bilirubin levels. 42 Because ethnic data is not always readily [...] 15-29 5 Kidney failure <15 (or dialysis) 43 Serologic response to B. burgdorferi infection is not detected, but cannot rule out early infection during which low or undetectable antibody levels to B. burgdorferi may be present. If clinically indicated, a new serum specimen should be submitted in 7-14 days. Test Performed by: [facility] Dpt of Lab Med and Pathology [address] [place] [address] Enrollment Counselor: Jonnie Isabel III, M.D. 44 CHOLESTEROL INTERPRETATION: [...] has been shown to interfere with the Jendrassik-Safford method for measuring total bilirubin. Samples from [...] (or dialysis) 50 ---- RUN DATE: 11/13/10 [facility] NMI LIVE PAGE 1 RUN TIME: 1520 Specimen Inquiry RUN USER: INTERFACE -- Name: PRACHI VANG Status: REG REF Re11/09/10 Age/Sex: 65/F Unit#: [id number] Location: [address] [place] [address]. : [birth year] -- Specimen: [id number] SOUT Spec Date: 11/09/[address]: Annette [...] findings are necessary. ADDENDUM Addendum #1 Entered: 11/13/10-6468 Dr. Helm has reviewed this case and concurs. 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 No evidence of neoplasia is seen in the submitted tissue. Focal microcalcification in association with benign stromal tissue are noted. -- DEPARTMENT OF PATHOLOGY, [address] [place] [address] [facility] Permit #[id number] Aurelio Grullon M.D. Director Dance Dir leonora -- -- RUN DATE: 11/13/10 [facility] NMI LIVE PAGE 2 RUN TIME: 1520 Specimen Inquiry RUN USER: INTERFACE -- Name: PRACHI VANG Status: REG REF Re11/09/10 Age/Sex: 65/F Unit#: [id number] Location: [address] [place] [address]. : [birth year] -- -- CONTINUED -- ADDENDUM (Continued) Addendum Review (signature on file) WILLIAM HELM MD 11/13/10 -- Signed Electronically by: AMERICO BLAKELY 11/10/10 1332 -- -- DEPARTMENT OF PATHOLOGY, [address] [place] [address] [facility] Permit #[id number] William Helm M.D. Director Americo Blakely M.D. Director Dance Dir leonora -- Procedures Date CPT Code Description Status 03/28/2017 Mammogram Completed 03/28/2017 Bone Mineral Density Test Completed 08/27/2016 55638 THR Total Hip Replacement Completed 08/27/2016 86059 THR Total Hip Replacement Completed 08/02/2016 36628 EKG Tracing & Interpretation Completed 10/05/2015 77991 Inject/Drain Joint/Bursa Major Completed 04/05/2015 Mammogram Completed 03/08/2014 Mammogram Completed 10/16/2013 Colonoscopy Completed 03/05/2013 Bone Mineral Density Test Completed 03/05/2013 Mammogram Completed 03/03/2012 Mammogram Completed 11/12/2011 94026 EKG Tracing & Interpretation Completed 04/26/2011 Mammogram Completed 11/06/2010 Mammogram Completed 10/31/2010 Mammogram Completed 10/19/2009 Mammogram Completed 09/29/2009 90186 EKG Tracing & Interpretation Completed 11/01/2008 Bone Mineral Density Test Completed 09/22/2007 78070 EKG Tracing & Interpretation Completed 09/22/2007 55499 EKG Tracing & Interpretation Completed 09/14/2005 Mammogram Completed 08/29/2004 Mammogram Completed 03/23/2003 Mammogram Completed Encounters Type Date Location Provider CPT E/M Dx Office Visit 08/28/2017 [facility] [place], [address] M16.11 9:45a C.M.Robert Carey Z96.641 M54.31 Office Visit 06/17/2017 11:00a [facility] Moses Vincent M.D. 95814 I73.9 Of [facility] M54.16 Office Visit 05/20/2017 1:30p [facility] Moses Vincent M.D. 23463 M54.16 Of [facility] Office Visit 05/02/2017 10:00a [facility] Internal Medicine Amberly Villalpando, 56956 M54.16 - Sally Carey I10 Office Visit 03/27/2017 8:30a [facility] Crystal Garcia M.D. 48216 M25.551 Brooke M54.16 Office Visit 10/29/2016 10:40a [facility] Internal Medicine Amberly Kwasi, 88661 Z00.00 - Sally Carey I10 M85.852 Z12.31 G47.00 Office Visit 08/30/2016 2:04p [facility] Muna, [address]38[address] I49.9 Assoc,pc [facility] I10 Z96.641 Office Visit 08/02/2016 9:40a [facility] [place] [address] Z01.818 Sally M16.11 I10 H61.22 Office Visit 06/21/2016 10:15a [facility] [place] 30293 M16.11 Of Brooke Carey Office Visit 06/06/2016 11:45a [facility] [place] 99457 M25.551 Of Brooke Carey Office Visit 04/30/2016 8:40a [facility] Internal Medicine Amberlyloni Villalpando [address]9050 I10 - Sally Carey E78.5 M79.606 K21.9 Office Visit 03/28/2016 9:40a [facility] Aura Boucher [address]3427 M16.11 Of Brooke ANP-C Office Visit 02/29/2016 11:40a [facility] Aura Boucher 92590 M25.551 Of Brooke ANP-C Office Visit 08/16/2015 2:30p [facility] Aura Boucher 38348 M75.111 Of Brooke ANP-C Office Visit 07/19/2015 1:30p [facility] [place] [address]806 840.4 Of Brooke Carey Office Visit 04/06/2015 9:40a [facility] Internal Medicine Amberly Cotton, 35329 401.1 - [place] M.D. 782.1 Office Visit 10/07/2014 9:00a [facility] Internal Medicine Randi Mason N.Lexi. 49212 V70.0 - [place] V72.31 401.1 715.00 733.90 530.81 V76.10 272.4 V06.1 Office Visit 04/29/2014 11:20a [facility] Internal Medicine Amberly Cotton, 44533 530.11 - [place] M.D. 729.5 Office Visit 03/18/2014 10:00a [facility] Internal Medicine Amberly Cotton, 79363 401.1 - [place] M.D. 530.11 729.5 Office Visit 09/11/2013 9:40a [facility] Internal Medicine Amberly Kwasi, 12133 V70.0 - [place] M.D. 401.1 780.52 715.00 V76.10 V76.51 V04.81 Office Visit 03/12/2013 10:00a [facility] Internal Medicine Amberly Cotton, 89557 401.1 - [place] M.D. 733.90 V04.89 272.2 Office Visit 05/15/2012 10:20a [facility] Internal Medicine Amberly Cotton, 66745 401.1 - [place] M.D. 780.52 Office Visit 11/12/2011 10:00a DO Not Use Amberly Cotton, 00114 V70.0 [employer] M.D. V72.31 V76.10 V76.2 401.1 782.1 780.52 Office Visit 03/06/2011 1:45p DO Not Use Amberly Cotton, 18828 401.1 [employer] M.D. 564.00 785.2 Office Visit 11/27/2010 11:30a DO Not Use Amberly Cotton, 26709 401.1 [employer] M.D. Office Visit 11/09/2010 11:45a DO Not Use Amberly Cotton, 02968 401.1 [employer] M.D. 300.00 Office Visit 10/16/2010 10:15a DO Not Use Amberly Cotton, 95615 V70.0 [employer] M.D. 564.00 782.9 780.52 401.1 611.72 Office Visit 06/06/2010 8:30a DO Not Use Amberly Cotton, 07633 333.94 [employer] M.D. Office Visit 03/23/2010 9:30a DO Not Use Amberly Cotton, 06025 729.5 [employer] M.D. 333.94 388.30 401.1 Office Visit 2010 9:45a DO Not Use RadZoraida abdullahi, 91646 724.2 [employer] M.D. 401.1 Office Visit 09/29/2009 1:45p DO Not Use RadZoraida abdullahi, 94096 V70.0 [employer] M.D. 401.1 Office Visit 08/30/2009 10:00a DO Not Use [employer] Randi Mason, 96039 724.1 N.P. 728.85 V04.81 Office Visit 03/24/2009 1:00p DO Not Use RadZoraida abdullahi, 77833 401.1 [employer] M.D. Office Visit 09/23/2008 1:30p DO Not Use Zoraida Gilbert, 50442 V72.31 [employer] M.D. 401.1 V04.81 Office Visit 03/23/2008 1:15p DO Not Use Zoraida Gilbert, 22187 845.00 [employer] M.D. 401.1 Office Visit 09/22/2007 1:15p DO Not Use Zoraida Gilbert, 64257 719.41 [employer] M.D. 723.1 401.1 558.9 V72.31 V04.81 Office Visit 06/13/2007 12:45p DO Not Use Zoraida Gilbert, 58147 401.1 [employer] M.D. Office Visit 11/27/2006 1:15p DO Not Use Zoraida Gilbert, 57360 401.1 [employer] M.D. 733.90 724.2 Office Visit 09/18/2006 1:30p DO Not Use Zoraida Gilbert, 88702 V72.31 Salud-Sally Pickens.Priscilla V76.41 V04.81 Office Visit 08/08/2006 9:45a DO Not Use RadZoraida abdullahi, 21311 724.2 Salud-Sally Pickens.Priscilla 724.02 Office Visit 06/12/2006 10:15a DO Not Use Zoraida Gilbert, 16681 724.2 Salud-Sally Pickens.Priscilla 724.02 719.45 Plan of Care Future Appointment(s):04/16/2018 10:00 am - Capo [facility]ur M.D. at [facility]..03/17/2018 7:30 am - DAYDAY Hunter at [facility]03/03/2018 9:20 am - Ayan Vickers NP at [facility] Internal [facility]03/17/2018 7:30 am - Capo Mc[facility]ur M.D. at [facility].A.11/06/2018 11:00 am - Amberly Villalpando M.D. at [facility] Internal [facility]05/01/2018 2:20 pm - Amberly Villalpando M.D. at [facility]09/03/2018 9:45 am - Capo Mcarthur M.D. at [facility]02/26/2018 - Capo Mcarthur M.D.M16.12 Unilateral primary osteoarthritis , left hipNew Xrays:Hip Left 2 Views And Pelvis 93254 - 58154Epvmrv up:Follow up : 4 weeks post-op
[2018-03-17] MEDS ORDERED: Famotidine IV* 10 MG/ML 2 ML (20 mg) IV ONE (06:00)
[2018-03-17] MEDS ORDERED: Dexamethasone IV* 4 MG/ML 1 ML (4 MG) IV SLOW PU ONE (06:00)
[2018-03-17] MEDS ORDERED: Buffered Lidocaine 0.9% SYRIN* 5 ML/SYR SYRINGE INTRADERM ONE (06:00)
[2018-03-17] MEDS ORDERED: Acetaminophen IV 1GM/100ML * 1,000 MG/100 ML VIAL IVPB ONE (06:00)
[2018-03-17] MEDS ORDERED: Dexamethasone IV* 4 MG/ML 1 ML (4 MG) ONE (06:04)
[2018-03-17] MEDS ORDERED: Famotidine TAB* 20 MG ONE (06:04)
[2018-03-17] MEDS ORDERED: ceFAZolin 2 GM PREMIX (*) 2 GM/50 ML BAG IVPB ONE (06:05)
[2018-03-17] MEDS ORDERED: Buffered Lidocaine 0.9% SYRIN* 5 ML/SYR SYRINGE ONE (06:05)
[2018-03-17] MEDS ORDERED: Midazolam* 1 MG/ML 2 ML VIAL (2 MG) ONE ×2 (06:57→08:03)
[2018-03-17] MEDS ORDERED: fentaNYL* 50 MCG/ML 2 ML VIAL (100 MCG VIAL) ONE (06:57)
[2018-03-17] MEDS ORDERED: fentaNYL* 50 MCG/ML 2 ML VIAL (100 MCG VIAL) IV PRN (07:14)
[2018-03-17] MEDS ORDERED: oxyCODONE TAB* 5 MG TAB PO PRN ×3 (07:14→08:02)
[2018-03-17] MEDS ORDERED: Scopolamine 1.5 mg* PATCH TRANSDERM PRN ×2 (07:14→23:45)
[2018-03-17] MEDS ORDERED: Naloxone* 0.4 MG/ML 1 ML VIAL IV PRN ×2 (07:14→08:02)
[2018-03-17] MEDS ORDERED: diPHENhydraMINE IV* 50 MG/ML 1 ml VIAL (BENADRYL) IV PRN ×3 (07:14→23:46)
[2018-03-17] MEDS ORDERED: PROCHLORPERAZINE INJ 5 MG/ML 2 ML VIAL IV PRN (07:14)
[2018-03-17] MEDS ORDERED: HYDROmorphone INJ* 1 MG/ML CARPUJECT SYRINGE IV PRN (07:14)
[2018-03-17] MEDS ORDERED: Ondansetron INJ* 2 MG/ML VIAL IV PRN ×3 (07:14→23:46)
[2018-03-17] MEDS ORDERED: Morphine PF AMP (0.5MG/ML)* 5 MG/10 ML AMP ONE (07:24)
[2018-03-17] MEDS ORDERED: Acetaminophen IV 1GM/100ML * 100 ML ONE (07:38)
[2018-03-17] MEDS ORDERED: EPHEDrine (Pressors)* 50 MG/ML VIAL ONE (07:57)
[2018-03-17] MEDS ORDERED: Propofol* 500 MG/50 ML BTL ONE (07:57)
[2018-03-17] MEDS ORDERED: Lidocaine 2% PF * 5 ML VIAL ONE (07:57)
[2018-03-17] MEDS ORDERED: Ketorolac INJ* 30 MG/ML 1 ML VIAL IV PRN (08:02)
[2018-03-17] MEDS ORDERED: Acetaminophen TAB* 325 MG PO PRN (08:02)
[2018-03-17] MEDS ORDERED: Ketorolac INJ* 30 MG/ML 1 ML VIAL ONE (08:21)
[2018-03-17] MEDS ORDERED: Ondansetron INJ* 2 MG/ML VIAL ONE (08:21)
[2018-03-17] MEDS ORDERED: Magnesium Hydroxide LIQ* 30 ML UDC PO PRN (09:41)
[2018-03-17] MEDS ORDERED: ceFAZolin 1 GM in Dextrose (*) 1 GM/50 ML BAG IVPB SCH (10:00)
--- NOTE | 2018-03-17 13:50 | OP ---
OPERATIVE REPORT: DATE OF OPERATION: 03/17/18 - Inpatient, room SSU 341-02 DATE OF : 49 ATTENDING SURGEON: Capo Mcarthur MD MOTOR BUILDER ASSEMBLER: Ramona Pierson RPA ANESTHESIOLOGIST: Kimberli Escobar MD ANESTHESIA: Spinal sedation. PRE-OP DIAGNOSIS: Osteoarthritis, left hip. POST-OP DIAGNOSIS: Osteoarthritis, left hip. OPERATIVE PROCEDURE: Left total hip arthroplasty. ESTIMATED BLOOD LOSS: 200 cc. COMPLICATIONS: None. HARDWARE: Debora #9 reduced neck ML taper plus 0 32 mm head, 50 mm continuum cup, with 2 screws 15 degree, elevated liner. SUMMARY: Ms. Vang is a 73-year-old female who has been having continued troubles with left hip pain. She had previous undergone a right total hip arthroplasty, had done quite well with this. She had presented to the office complaining of left hip pain and reports that at this time she wanted to get the hip fixed before it had gotten as bad as the right had been. She had some very specific arthritic changes within the hip and I discussed with her that a total hip arthroplasty should work well to decrease her pain and improve her function. Risks of surgery such as infection, scar formation, stiffness, DVT, leg length discrepancy instability and hardware failure were some of the risks discussed. She had been declared medically optimized and wished to proceed. Ramona Pierson was present throughout the case and it could not have been done without an assist. DESCRIPTION OF PROCEDURE: The patient was brought to the OR and spinal anesthesia was introduced. A Varghese catheter was placed. She was then rolled into the right lateral decubitus position and axillary roll was placed. She was secured to the table and left hip area was prepped and then draped. Incision was made, centered over the greater trochanter, extending proximally and distally for about 7 cm. Incision was carried down through the skin and subcutaneous fat. Small bleeders encountered were ligated using electrocautery and eventually fascia was reached. By palpation I could feel greater trochanter much easier now and sharp incision was made over the fascia itself. Blunt dissection was carried proximally over the musculature. Charnley retractor was placed and trochanteric bursa was taken done using electrocautery. Sharp Hohmann was placed under the gluteus medius/ gluteus minimus and nice exposure of the short external rotators and piriformis was obtained. Electrocautery was used to take down piriformis, gemelli and a portion of the obturator internus; capsule was also incised with this. T-capsulotomy was then made and then the hip was easily dislocated. Cutting guide was placed and the femoral neck was marked using an osteotome. Reciprocating saw was then used to resect the femoral head. Anterior C retractor was then placed to pull the femur forward and a broad Hohmann was placed inferiorly and this gave nice exposure to the acetabulum. Trocar was used to grasp redundant labrum and labrum was resected. She had quite a bit of pulvinar present in the fovea as well. Beginning with a 44, she was very deepened a little bit and then progressively enlarged. She had a 50 cup on the opposite side and she templated to be the same on the left as well. With the 48, I leaned into a little bit and ended up taking a little more bone. With the 49, I had nice bleeding bone all around and a 50 cup was then impacted into place. Two screws were placed and a nice bite was obtained. Trial liner was placed and attention was turned to the proximal femur. Box osteotome was used to open the femoral canal and the canal finder was easily passed. Beginning with a 4 broach, she was progressively broached and again at the 9, I had a nice snug fit. Calcar planer was used to smooth off the femoral neck cut and she was trialed with a -3.5 and she seemed a little bit loose. With the 0, she had good leg length and good stability, but with 45 degrees of internal rotation and some hyperflexion, she would pop out. Trial instrumentation was removed and a 15 degree elevator liner was called for and impacted into place. A 9 reduce neck ML taper was also impacted into place and she was again trialed with a 0 and plus head and I like the 0 best for giving her what I felt to be perfect leg length back. The 0 head was then impacted into place. She had excellent stability only levering out when she was past 60 degrees of internal rotation while the hip was flexed to more than 90 degrees and in adduction. Hip was copiously pulse lavaged. Piriformis, short external rotators and capsules were repaired together to the posterior aspect of the greater trochanter. Hip was again copiously pulse lavaged and the fascia was repaired using interrupted #1 Vicryl sutures. Subcutaneous tissues were reapproximated in layers and skin was closed using justen. Sterile dressing and an abduction pillow were applied in the OR. The patient was then rolled onto the hospital bed and was stable on transfer to the recovery room. [id number]/[facility] #: [id number] ALY
[2018-03-17] MEDS ORDERED: Heparin VIAL(*) 5000 UNITS/ML VIAL (FIVE THOUSAND) SUBCUT SCH (14:00)
[2018-03-17] MEDS: ceFAZolin 1 GM in Dextrose (*) 1 GM/50 ML BAG IVPB SCH (16:48)
[2018-03-17] MEDS ORDERED: Warfarin TAB(*) 10 MG PO ONE (17:00)
[2018-03-17] MEDS: Magnesium Hydroxide LIQ* 30 ML UDC PO SCH (22:19)
[2018-03-17] MEDS: Gabapentin CAP(*) 300 MG PO SCH (22:28)
[2018-03-17] MEDS: Docusate CAP* 100 MG PO SCH (22:28)
[2018-03-17] MEDS: D5W 1/2 NS 1000 ML BAG* 1,000 ML IV SCH (22:29)
[2018-03-17] MEDS ORDERED: Ondansetron TAB* 4 MG PO PRN (23:46)
[2018-03-17] MEDS ORDERED: oxyCODONE/Acetamin 5/325 MG* TAB PO PRN ×2 (23:46)
[2018-03-17] MEDS ORDERED: diPHENhydraMINE PO* 25 MG PO PRN (23:46)
[2018-03-18] MEDS: ceFAZolin 1 GM in Dextrose (*) 1 GM/50 ML BAG IVPB SCH ×2 (00:11→08:18)
[2018-03-18 05:50] LABS: Hematocrit 29 % (35-47); Hemoglobin 9.8 g/dl (12.0-16.0); Platelet Count 197 10^3/ul (150-450)
[2018-03-18 06:01] LABS: INR 1.22 (0.77-1.02)
[2018-03-18 06:07] LABS: EGFR Non-African American 83.9 (>60)
[2018-03-18] MEDS: oxyCODONE/Acetamin 5/325 MG* TAB PO PRN ×4 (06:07→21:06)
[2018-03-18] MEDS: Atorvastatin* 10 MG TAB PO SCH (08:18)
[2018-03-18] MEDS: Cyanocobalamin TAB* 500 MCG PO SCH (08:18)
[2018-03-18] MEDS: Gabapentin CAP(*) 300 MG PO SCH ×2 (08:18→21:06)
[2018-03-18] MEDS: Docusate CAP* 100 MG PO SCH ×2 (08:18→21:05)
[2018-03-18] MEDS: Vitamin THERAPEUTIC TAB PO SCH (08:18)
[2018-03-18] MEDS: Calcium Carbonate TAB* 1250 MG (CALCIUM 500 MG) PO SCH (08:18)
[2018-03-18] MEDS: Magnesium Hydroxide LIQ* 30 ML UDC PO SCH ×2 (08:18→21:06)
--- NOTE | 2018-03-18 08:22 | PN ---
Progress Note - Progress Note Date of Service: 03/18/18 SOAP: Subjective: [Pt was seen sitting up in bed eating breakfast this am. She states that pain is a 5 out of 10 at the worst but is well managed with pain medication. She had trouble sleeping last night due to the noises but not from pain. She has not started PT as of yet and states that she does have some lower back pain from being in the bed this long. She denies any numbness or tingling. She denies any chest pain or shortness of breath. Denies any nausea or vomiting. ] Objective: [General: Awake, alert and oriented. NAD MSK, LLE: Dressing is c/d/i. She can df/pf without issue. Calf soft and non tender. She is NVI, 2+ DP pulse. Vital Signs Temp 98.0 F 03/18/18 07:49 Pulse 60 03/18/18 07:49 Resp 16 03/18/18 08:18 BP 113/51 03/18/18 07:49 Pulse Ox 99 03/18/18 07:49 Intake & Output 03/17/18 03/18/18 03/18/18 18:59 06:59 18:59 Intake Total 4803 1922 600 Output Total 1575 1050 Balance 3228 872 600 Intake: IV Fluids 3250 522 D5W 1/2 NS 522 LR 3200 NS 50ML, Cefazolin 2G 50 IVPB 513 D5W 1/2 NS 458 abx 55 Oral 1040 1400 600 Output: [place] 1325 1050 Estimated Blood Loss 250 ] Assessment: [POD 1 Left total hip arthroplasty ] Plan: [Start PT this am Continue with current pain medication Continue with heparin ]
[2018-03-18] MEDS: amLODIPine TAB* 5 MG PO SCH (08:24)
[2018-03-18] MEDS: Hydrochlorothiazide TAB* 25 MG PO SCH (08:24)
[2018-03-18] MEDS: Losartan TAB* 25 MG PO SCH (08:24)
[2018-03-18] MEDS: D5W 1/2 NS 1000 ML BAG* 1,000 ML IV SCH (08:33)
[2018-03-18] MEDS: oxyCODONE TAB* 5 MG TAB PO PRN ×2 (13:21→22:47)
[2018-03-18] MEDS: Heparin VIAL(*) 5000 UNITS/ML VIAL (FIVE THOUSAND) SUBCUT SCH ×3 (13:21→21:07)
[2018-03-18] MEDS ORDERED: Warfarin TAB(*) 4 MG PO ONE (17:00)
[2018-03-18] MEDS: Aspirin 81 mg CHEW TAB* 81 MG TAB.CHEW PO SCH (17:00)
[2018-03-19] MEDS: oxyCODONE/Acetamin 5/325 MG* TAB PO PRN ×5 (02:33→23:57)
[2018-03-19] MEDS: Heparin VIAL(*) 5000 UNITS/ML VIAL (FIVE THOUSAND) SUBCUT SCH (05:24)
[2018-03-19 06:15] LABS: Hematocrit 29 % (35-47); Hemoglobin 9.7 g/dl (12.0-16.0); Mean Platelet Volume 7.6 um3 (7.4-10.4); Platelet Count 193 10^3/ul (150-450)
[2018-03-19 06:22] LABS: INR 3.11 (0.77-1.02)
[2018-03-19] MEDS: oxyCODONE TAB* 5 MG TAB PO PRN ×2 (08:46→20:28)
[2018-03-19] MEDS: Vitamin THERAPEUTIC TAB PO SCH (08:46)
[2018-03-19] MEDS: amLODIPine TAB* 5 MG PO SCH (08:46)
[2018-03-19] MEDS: Atorvastatin* 10 MG TAB PO SCH (08:46)
[2018-03-19] MEDS: Calcium Carbonate TAB* 1250 MG (CALCIUM 500 MG) PO SCH (08:46)
[2018-03-19] MEDS: Cyanocobalamin TAB* 500 MCG PO SCH (08:46)
[2018-03-19] MEDS: Docusate CAP* 100 MG PO SCH ×2 (08:46→20:32)
[2018-03-19] MEDS: Losartan TAB* 25 MG PO SCH (08:46)
[2018-03-19] MEDS: Gabapentin CAP(*) 300 MG PO SCH ×2 (08:46→20:28)
[2018-03-19] MEDS: Hydrochlorothiazide TAB* 25 MG PO SCH (08:50)
[2018-03-19] MEDS: Magnesium Hydroxide LIQ* 30 ML UDC PO SCH ×2 (08:51→20:32)
[2018-03-19] MEDS: Polyethylene Glycol 3350* 17 GM PACKET PO SCH (08:51)
[2018-03-19] MEDS ORDERED: Bisacodyl SUPP* 10 MG SUPP PR PRN (09:41)
--- NOTE | 2018-03-19 09:51 | RAD ---
Indication: Post LEFT total hip arthroplasty without complication. Comparison: Preoperative exam of February 26, 2018 Technique: AP pelvis and proximal femurs, AP and crosstable lateral LEFT hip views. Report: LEFT total hip prosthesis in place with normal alignment. No periprosthetic fracture evident. Surrounding soft tissue edema and emphysema. Overlying cutaneous justen. RIGHT total hip replacement noted. IMPRESSION: Unremarkable immediate postop appearance of the LEFT total hip prosthesis.
--- NOTE | 2018-03-19 12:21 | PN ---
Progress Note - Progress Note Date of Service: 03/19/18 SOAP: Subjective: []Patient seen at bedside. Her hip pain is well controlled. Denies chest pain, shortness of breath, dizziness, fever or chills. She is nauseous but has not vomit. Objective: [] Vital Signs Temp 98.8 F 03/19/18 11:19 Pulse 73 03/19/18 11:19 Resp 18 03/19/18 11:49 BP 124/53 03/19/18 11:19 Pulse Ox 95 03/19/18 11:19 Intake & Output 03/18/18 03/19/18 03/19/18 18:59 06:59 18:59 Intake Total 950 740 545 Output Total 100 300 Balance 850 740 245 Intake: Oral 950 740 545 Output: Urine 100 300 Other: Estimated Void Medium Date of Last Bowel 03/18/18 03/19/18 Movement # Bowel Movements 1 1 Estimated Stool Amount Large Small # Voids 1 Laboratory Last Values Hgb 9.7 g/dl (12.0-16.0) L 03/19/18 06:09 Hct 29 % (35-47) L 03/19/18 06:09 Plt Count 193 10^3/ul (150-450) 03/19/18 06:09 MPV 7.6 um3 (7.4-10.4) 03/19/18 06:09 INR (Anticoag Therapy) 3.11 (0.77-1.02) H 03/19/18 06:09 Sodium 130 mmol/L (139-145) L 03/18/18 05:16 Potassium 3.8 mmol/L (3.5-5.0) 03/18/18 05:16 Chloride 99 mmol/L (101-111) L 03/18/18 05:16 Carbon Dioxide 26 mmol/L (22-32) 03/18/18 05:16 Anion Gap 5 mmol/L (2-11) 03/18/18 05:16 BUN 11 mg/dL (6-24) 03/18/18 05:16 Creatinine 0.69 mg/dL (0.51-0.95) 03/18/18 05:16 Est GFR ( Amer) 107.9 (>60) 03/18/18 05:16 Est GFR (Non-Af Amer) 83.9 (>60) 03/18/18 05:16 BUN/Creatinine Ratio 15.9 (8-20) 03/18/18 05:16 Glucose 140 mg/dL (70-100) H 03/18/18 05:16 Calcium 8.1 mg/dL (8.6-10.3) L 03/18/18 05:16 General: Well appearing, NAD LLE: Dressing changed, incision CDI without surrounding erythema. Thigh soft. DF /PF intact. Sensation intact distally. DP2+, capillary refill less than two seconds distally BL LE: Calves supple and nontender without erythema, edema or palpable cords. Assessment: []POD 2 sp left total hip arthroplasty Plan: []WBAT PT/OT stop heparin, hold coumadin today May DC home when feeling well, today if nausea subsides and patient comfortable to go home
[2018-03-19] MEDS: Aspirin 81 mg CHEW TAB* 81 MG TAB.CHEW PO SCH (17:01)
[2018-03-20] MEDS: oxyCODONE TAB* 5 MG TAB PO PRN (05:18)
[2018-03-20] MEDS ORDERED: Cyclobenzaprine TAB* 10 MG PO PRN (05:40)
[2018-03-20] MEDS ORDERED: Cyclobenzaprine TAB* 10 MG ONE (05:48)
[2018-03-20 06:01] LABS: Hematocrit 30 % (35-47); Hemoglobin 10.3 g/dl (12.0-16.0); Mean Platelet Volume 7.7 um3 (7.4-10.4); Platelet Count 211 10^3/ul (150-450)
[2018-03-20 06:30] LABS: INR 2.5 (0.77-1.02)
[2018-03-20] MEDS ORDERED: Scopolamine PATCH Remove* 1 NOTE MISC PATCH OFF ONE (07:15)
[2018-03-20] MEDS ORDERED: Scopolamine PATCH Remove* 1 NOTE MISC PATCH OFF PRN (08:04)
[2018-03-20] MEDS: Polyethylene Glycol 3350* 17 GM PACKET PO SCH (08:12)
[2018-03-20] MEDS: Docusate CAP* 100 MG PO SCH (08:14)
[2018-03-20] MEDS: Vitamin THERAPEUTIC TAB PO SCH (08:14)
[2018-03-20] MEDS: Losartan TAB* 25 MG PO SCH (08:14)
[2018-03-20] MEDS: Gabapentin CAP(*) 300 MG PO SCH (08:14)
[2018-03-20] MEDS: oxyCODONE/Acetamin 5/325 MG* TAB PO PRN ×2 (08:14→13:07)
[2018-03-20] MEDS: Hydrochlorothiazide TAB* 25 MG PO SCH (08:15)
[2018-03-20] MEDS: Calcium Carbonate TAB* 1250 MG (CALCIUM 500 MG) PO SCH (08:15)
[2018-03-20] MEDS: Cyanocobalamin TAB* 500 MCG PO SCH (08:15)
[2018-03-20] MEDS: Atorvastatin* 10 MG TAB PO SCH (08:15)
[2018-03-20] MEDS: amLODIPine TAB* 5 MG PO SCH (08:15)
[2018-03-20] MEDS: Magnesium Hydroxide LIQ* 30 ML UDC PO SCH (08:17)
[2018-03-20 11:31] VITALS: BP 131/58
--- NOTE | 2018-03-20 14:44 | PN ---
Progress Note - Progress Note Date of Service: 03/20/18 SOAP: Subjective: []Patient seen at bedside. She is feeling well today. Earlier in the day she felt "fuzzy" in general and felt vision was generally 'fuzzy' though she was still able to read well both near and far. She did not have any weakness, dizziness, confusion, shortness of breath, headache, chest pain or nausea. Prior to discharge she reports feeling entirely well with no "fuzzy" feeling or vision. Objective: [] Vital Signs Temp 98.1 F 03/20/18 11:24 Pulse 83 03/20/18 11:24 Resp 16 03/20/18 13:07 BP 131/58 03/20/18 11:24 Pulse Ox 97 03/20/18 11:24 Intake & Output 03/19/18 03/20/18 03/20/18 18:59 06:59 18:59 Intake Total 1050 1050 1240 Output Total 1500 1800 1200 Balance -450 -750 40 Intake: Oral 1050 1050 1240 Output: Urine 1500 1800 1200 Other: # Bowel Movements 0 Laboratory Last Values Hgb 10.3 g/dl (12.0-16.0) L 03/20/18 05:49 Hct 30 % (35-47) L 03/20/18 05:49 Plt Count 211 10^3/ul (150-450) 03/20/18 05:49 MPV 7.7 um3 (7.4-10.4) 03/20/18 05:49 INR (Anticoag Therapy) 2.50 (0.77-1.02) H 03/20/18 05:49 Sodium 130 mmol/L (139-145) L 03/18/18 05:16 Potassium 3.8 mmol/L (3.5-5.0) 03/18/18 05:16 Chloride 99 mmol/L (101-111) L 03/18/18 05:16 Carbon Dioxide 26 mmol/L (22-32) 03/18/18 05:16 Anion Gap 5 mmol/L (2-11) 03/18/18 05:16 BUN 11 mg/dL (6-24) 03/18/18 05:16 Creatinine 0.69 mg/dL (0.51-0.95) 03/18/18 05:16 Est GFR ( Amer) 107.9 (>60) 03/18/18 05:16 Est GFR (Non-Af Amer) 83.9 (>60) 03/18/18 05:16 BUN/Creatinine Ratio 15.9 (8-20) 03/18/18 05:16 Glucose 140 mg/dL (70-100) H 03/18/18 05:16 Calcium 8.1 mg/dL (8.6-10.3) L 03/18/18 05:16 General: Well appearing, NAD LLE: Dressing changed, incision CDI without surrounding erythema. Thigh soft. DF /PF intact. Sensation intact distally. DP2+, capillary refill less than two seconds distally BL LE: Calves supple and nontender without erythema, edema or palpable cords. Neuro: CN 2-12 intact and symmetric. Finger to nose and rapid alternating movements intact and symmetric bilaterally. statement request clerk, biceps 5/5 strength bilaterally. Assessment: []POD 3 sp left total hip arthroplasty Plan: []WBAT PT/OT Coumadin 2 mg today DC home today
--- NOTE | 2018-03-20 22:12 | DS ---
DISCHARGE SUMMARY: DATE OF ADMISSION: 03/17/18 DATE OF DISCHARGE: 03/20/18 SURGEON: Capo Mcarthur MD* (dictated by DAYDAY Hunter). RN DIGESTIVE: DAYDAY Hunter PREOPERATIVE DIAGNOSIS: Osteoarthritis of the left hip. OPERATIVE PROCEDURE: Left total hip arthroplasty. SUMMARY: Ms. Vang is a 73-year-old female who was having troubles with increasingly severe left hip pain. She has very specific arthritic changes of the left hip and elected to undergo a left total hip arthroplasty. HOSPITAL COURSE: The patient was admitted to [facility] on . She underwent a left total hip arthroplasty without complication. She recovered briefly in the PACU and then was transferred to the short-stay surgical unit in stable condition. On postop day 1, dressing was clean, dry, and intact. The patient can dorsiflex and plantarflex without issue. Calves soft and nontender. Neurovascularly intact. 2+ dorsalis pedis pulse. On postop day 2, the patient was well appearing, in no acute distress. Dressing was changed. Incision clean, dry, and intact without surrounding erythema. Dorsiflexion and plantarflexion intact. 2+ dorsalis pedis pulse. The patient was feeling nauseous, but has not vomited. On postop day 3, the patient is well appearing in no acute distress. She reports that she feels fuzzy in general and her vision in both eyes is fuzzy. She does not have any blurred vision. She is able to read close up and far away well. She does not feel that she has any weakness, dizziness, confusion, shortness of breath, headache, chest pain, nausea, or numbness. This feeling did resolve entirely prior to discharge with return of normal vision and no feeling of fuzziness any longer. Vital Signs: temperature 98.1, pulse 83, respiratory rate 16, blood pressure 131/58, and pulse ox 97%. Hemoglobin 10.3, hematocrit 30, INR 2.50. In general, the patient is well appearing in no acute distress. Dressing was changed. Incision clean, dry, and intact. Thigh was soft. Dorsiflexion and plantarflexion intact. Sensation intact distally. Calves supple and nontender without erythema, edema, or palpable cords. On neuro exam, cranial nerves II through XII were intact and symmetric. [id number] and rapid alternating movements were intact and symmetric bilaterally. Biceps 5/5 strength bilaterally. The patient was deemed to be medically and orthopedically stable for discharge home. MEDICATIONS ON DISCHARGE: 1. Aspirin 81 mg daily. 2. Carson-3 fatty acid 1000 mg p.o. q.p.m. 3. Gabapentin 300 mg p.o. b.i.d. 4. Atorvastatin 10 mg p.o. q.a.m. 5. Amlodipine 5 mg p.o. q.a.m. 6. mg p.o. every other day. 7. Multivitamin 1 cap p.o. q.a.m. 8. Losartan/hydrochlorothiazide 50/12.5, 1 tab p.o. q.a.m. 9. Vitamin B12, 1000 mcg p.o. q.a.m. 10. Calcium 500 mg p.o. q.a.m. 11. Cyclobenzaprine 5 mg p.o. q.8 hours p.r.n., daily dose 15 mg. 12. Docusate 100 mg p.o. b.i.d. p.r.n. constipation. 13. Percocet 5/325 mg 1 to 2 tabs every 4 to 6 hours p.r.n. 14. Warfarin 2 mg tabs 1 to 2 tabs every day, dosing depends on INR draws. DISCHARGE PLAN: Weightbearing as tolerated. Hip precautions. Okay to shower on 3rd postop day. Do not submerge wound. Physical therapy and occupational therapy exercises as shown. Visiting nurse will remove justen in 10 to 12 days and do wound checks. Visiting nurse to do INR draws Mondays and . Coumadin dosing 2 mg 03/20/18, 0 mg 03/21/18, 2 mg 03/22/18, 0 mg , and recheck INR on 03/24/18. Pain control with Percocet 5/325 one to two tabs every 4 to 6 hours as needed for pain, max daily dose 10. Cyclobenzaprine 5 mg tabs one tab every 8 hours as needed for muscle spasm relief. Follow up with Dr. Mcarthur in 4 weeks, sooner if needed . [place], [place] [id number]/[facility] #: [id number] [facility] HOSPITALVicky
== END 2018-03-20 15:31 | disposition home health service (06) | DRG 470 ==
LOC: AA 05:54 → SSU 12:25
PROVIDERS: ADMIT Orthopaedic Surgery; ATTEND Orthopaedic Surgery
PROC: 0SRB02Z Replacement of Left Hip Joint with Metal on Polyethylene Synthetic Substitute, Open Approach (ICD-10-PCS; principal; 2018-03-17 07:30)
DX: M16.12 Unilateral primary osteoarthritis, left hip (principal); Z96.641 Presence of right artificial hip joint; I10 Essential (primary) hypertension; M51.16 Intervertebral disc disorders with radiculopathy, lumbar region; G25.81 Restless legs syndrome; I73.9 Peripheral vascular disease, unspecified; M85.80 Other specified disorders of bone density and structure, unspecified site; M48.061 Spinal stenosis, lumbar region without neurogenic claudication; R11.0 Nausea; H53.149 Visual discomfort, unspecified; E78.5 Hyperlipidemia, unspecified; Z79.82 Long term (current) use of aspirin; Z79.01 Long term (current) use of anticoagulants; Z85.828 Personal history of other malignant neoplasm of skin; Z98.51 Tubal ligation status; Z83.3 Family history of diabetes mellitus; Z82.49 Family history of ischemic heart disease and other diseases of the circulatory system; Z80.9 Family history of malignant neoplasm, unspecified
CPT/HCPCS: 36415; 72170; 80048; 85014; 85018; 85049; 85610; 88304; 88311; 94760; A9270-GY; C1713; C1776; G8978-GP-CI; G8979-GP-CH; G8979-GP-CI; G8980-GP-CI; G8987-GO-CI; G8988-GO-CI; G8989-GO-CI; J0690; J1100; J1644; J1885; J2250; J2405; J2704; J3010

== ENCOUNTER 2022-08-04 10:20 | Inpatient (IN) ==
[2022-08-04] MEDS ORDERED: NS 0.9% 1000 ml BAG 1,000 ML IV ONE (11:17)
[2022-08-04 11:59] LABS: ABS Lymphocytes 0.3 10^3/ul (1.0-4.8); ABS Monocytes 0.2 10^3/ul (0-0.8); ABS Neutrophils 3.8 10^3/ul (1.5-7.7); Eosinophil % 0.1 %; Hematocrit 43 % (35-47); Lymphocyte % 5.9 %; Mean Corpuscular HGB Conc 33 g/dL (31-36); Mean Corpuscular Hemoglobin 31 pg (27-31); Mean Corpuscular Volume 96 fL (80-97); Mean Platelet Volume 8.2 fL (7.4-10.4); Nucleated Red Blood Cells % 0.1; Platelet Count 198 10^3/uL (150-450); Red Blood Count 4.46 10^6 /uL (3.70-4.87); Red Cell Distribution Width 13 % (10-15); White Blood Count 4.3 10^3/uL (3.5-10.8)
[2022-08-04 12:22] LABS: High Sens Troponin Baseline 10 pg/mL (<15)
[2022-08-04 12:41] LABS: TSH Ultra Thyroid Stim Horm 0.74 mcIU/mL (0.34-5.60)
[2022-08-04 12:49] LABS: Albumin 4.3 g/dL (3.2-5.2); CO2 Carbon Dioxide 20 mmol/L (22-32); Calcium 8.6 mg/dL (8.6-10.3); Chloride 95 mmol/L (101-111); Sodium 122 mmol/L (135-145)
[2022-08-04 12:53] LABS: ALT 77 U/L (7-52); Albumin/Globulin Ratio 1.3 (1-3); Alkaline Phosphatase 65 U/L (35-149); Blood Urea Nitrogen 21 mg/dL (6-24); Globulin 3.2 g/dL (2-4); Glucose 104 mg/dL (70-100); Total Protein 7.5 g/dL (6.4-8.9); eGFR CKD-EPI 58.8 (>60)
[2022-08-04 13:33] LABS: AST Redraw 55 U/L (13-39); Magnesium 1.7 mg/dL (1.9-2.7); Potassium Redraw 4.3 mmol/L (3.5-5.0)
[2022-08-04 13:39] LABS: High Sensitivity Troponin 1 Hr 10 pg/mL (<15)
[2022-08-04] MEDS ORDERED: Magnesium Sulfate IV 3 GM in NS 0.9% 100 ml BAG 100 ML IVPB ONE (13:41)
[2022-08-04 14:22] LABS: Anion Gap 7 mmol/L (2-11)
[2022-08-04 14:26] LABS: Potassium 4.2 mmol/L (3.5-5.0)
[2022-08-04 14:27] LABS: Calcium 8.2 mg/dL (8.6-10.3); eGFR CKD-EPI 67.6 (>60)
[2022-08-04 14:30] LABS: Urine Appearance Clear; Urine Bilirubin Negative (Negative); Urine Blood Negative (Negative); Urine Color Yellow; Urine Glucose Negative (Negative); Urine Ketones Negative (Negative); Urine Nitrite Negative (Negative); Urine Protein Trace (Negative); Urine Specific Gravity 1.015 (1.005-1.030); Urine Urobilinogen 1.0 (Negative) (Negative)
[2022-08-04 14:40] LABS: Urine Bacteria 1+ (Absent); Urine Red Blood Cell Trace(0-2/hpf) (Absent); Urine Squamous Epithelial Cell Present (Absent); Urine White Blood Cell 2+(11-20/hpf) (Absent)
[2022-08-04 14:51] LABS: Total Iron Binding Capacity 287 mcg/dL (250-450); Transferrin 205 mg/dL (203-362)
[2022-08-04 14:52] LABS: % Iron Saturation 7 % (15-55); Iron < 20 ug/dL (50-212); Unsaturated Iron Binding 267 ug/dL
[2022-08-04] MEDS ORDERED: cefTRIAXone 1 gm/50 mL D5W 1 GM/50 ML BAG IV ONE (14:55)
[2022-08-04 15:05] LABS: Osmolality Serum 278 mOsm/kg (275-295)
[2022-08-04 15:06] LABS: Urine Osmo 436 mOsm/kg (150-1150)
[2022-08-04 15:11] LABS: Ferritin 200.4 ng/mL (11-307)
[2022-08-04] MEDS ORDERED: Iron Sucrose 200 MG in NS 0.9% 100 ml BAG 100 ML IVPB ONE (15:14)
[2022-08-04] MEDS: Enoxaparin 40 MG/0.4 ML SYR SUBCUT SCH (17:22)
[2022-08-05 05:56] LABS: ABS Lymphocytes 0.3 10^3/ul (1.0-4.8); ABS Monocytes 0.2 10^3/ul (0-0.8); ABS Neutrophils 2.6 10^3/ul (1.5-7.7); Hematocrit 39 % (35-47); Hemoglobin 12.9 g/dL (12.0-16.0); Lymphocyte % 10.3 %; Mean Corpuscular HGB Conc 33 g/dL (31-36); Mean Corpuscular Hemoglobin 32 pg (27-31); Mean Corpuscular Volume 95 fL (80-97); Mean Platelet Volume 7.6 fL (7.4-10.4); Nucleated Red Blood Cells % 0.1; Platelet Count 116 10^3/uL (150-450); Red Blood Count 4.09 10^6 /uL (3.70-4.87); Red Cell Distribution Width 13 % (10-15); White Blood Count 3.1 10^3/uL (3.5-10.8)
[2022-08-05 06:24] LABS: Albumin 3.3 g/dL (3.2-5.2); Albumin/Globulin Ratio 1.4 (1-3); Calcium 7.6 mg/dL (8.6-10.3); Globulin 2.3 g/dL (2-4); Magnesium 1.8 mg/dL (1.9-2.7); Potassium 3.7 mmol/L (3.5-5.0); Total Bilirubin 0.4 mg/dL (0.2-1.0); Total Protein 5.6 g/dL (6.4-8.9); eGFR CKD-EPI 85.7 (>60)
[2022-08-05] MEDS ORDERED: NS 0.9% 1000 ml BAG 1,000 ML IV SCH (07:45)
[2022-08-05] MEDS: Calcium (OSCAL) 500 mg TAB PO SCH (08:13)
[2022-08-05] MEDS: Iron Sucrose 200 MG in NS 0.9% 100 ml BAG 100 ML IVPB SCH (08:13)
[2022-08-05] MEDS: DOXYcycline 100 MG in NS 0.9% 250 ml 250 ML IVPB SCH ×2 (08:38→20:03)
[2022-08-05 13:36] LABS: ABS Lymphocytes 0.5 10^3/ul (1.0-4.8); ABS Monocytes 0.2 10^3/ul (0-0.8); ABS Neutrophils 1.6 10^3/ul (1.5-7.7); Eosinophil % 0.2 %; Hematocrit 43 % (35-47); Hemoglobin 13.8 g/dL (12.0-16.0); Lymphocyte % 22.9 %; Mean Corpuscular HGB Conc 32 g/dL (31-36); Mean Corpuscular Hemoglobin 31 pg (27-31); Mean Corpuscular Volume 96 fL (80-97); Mean Platelet Volume 7.5 fL (7.4-10.4); Nucleated Red Blood Cells % 0.1; Platelet Count 113 10^3/uL (150-450); Red Blood Count 4.43 10^6 /uL (3.70-4.87); Red Cell Distribution Width 13 % (10-15); White Blood Count 2.3 10^3/uL (3.5-10.8)
[2022-08-05 13:43] LABS: Activated Partial Thrombo Time 34.8 seconds (26.0-38.0); INR 1.15 (0.89-1.11)
[2022-08-05 14:10] LABS: Potassium 4.2 mmol/L (3.5-5.0); eGFR CKD-EPI 85.7 (>60)
[2022-08-05] MEDS: Enoxaparin 40 MG/0.4 ML SYR SUBCUT SCH (15:11)
[2022-08-05] MEDS ORDERED: cefTRIAXone 1 gm/50 mL D5W 1 GM/50 ML BAG IV SCH (16:00)
[2022-08-06 06:14] LABS: ABS Lymphocytes 1.3 10^3/ul (1.0-4.8); ABS Monocytes 0.4 10^3/ul (0-0.8); ABS Neutrophils 2.3 10^3/ul (1.5-7.7); Eosinophil % 0.2 %; Hematocrit 38 % (35-47); Hemoglobin 13.5 g/dL (12.0-16.0); Lymphocyte % 31.5 %; Mean Corpuscular HGB Conc 35 g/dL (31-36); Mean Corpuscular Hemoglobin 34 pg (27-31); Mean Corpuscular Volume 96 fL (80-97); Mean Platelet Volume 8.6 fL (7.4-10.4); Nucleated Red Blood Cells % 0.1; Platelet Count 111 10^3/uL (150-450); Red Blood Count 3.99 10^6 /uL (3.70-4.87); Red Cell Distribution Width 13 % (10-15)
[2022-08-06 06:34] LABS: Albumin 3.2 g/dL (3.2-5.2); Albumin/Globulin Ratio 1.4 (1-3); Calcium 8.2 mg/dL (8.6-10.3); Globulin 2.3 g/dL (2-4); Potassium 4.2 mmol/L (3.5-5.0); Total Bilirubin 0.4 mg/dL (0.2-1.0); Total Protein 5.5 g/dL (6.4-8.9); eGFR CKD-EPI 91.8 (>60)
[2022-08-06] MEDS ORDERED: Ondansetron 4 mg VIAL 2 MG/ML 2 ml VIAL IV PRN (07:48)
[2022-08-06] MEDS: Iron Sucrose 200 MG in NS 0.9% 100 ml BAG 100 ML IVPB SCH (07:53)
[2022-08-06] MEDS: Calcium (OSCAL) 500 mg TAB PO SCH (08:22)
[2022-08-06] MEDS: DOXYcycline 100 MG in NS 0.9% 250 ml 250 ML IVPB SCH ×2 (08:43→20:40)
[2022-08-06] MEDS: Enoxaparin 40 MG/0.4 ML SYR SUBCUT SCH (15:15)
[2022-08-07 06:22] LABS: ABS Monocytes 0.6 10^3/ul (0-0.8); ABS Neutrophils 3.5 10^3/ul (1.5-7.7); Eosinophil % 0.1 %; Hematocrit 32 % (35-47); Hemoglobin 10.6 g/dL (12.0-16.0); Lymphocyte % 33.2 %; Mean Corpuscular HGB Conc 33 g/dL (31-36); Mean Corpuscular Hemoglobin 31 pg (27-31); Mean Corpuscular Volume 95 fL (80-97); Mean Platelet Volume 8.5 fL (7.4-10.4); Nucleated Red Blood Cells % 0.1; Platelet Count 129 10^3/uL (150-450); Red Blood Count 3.42 10^6 /uL (3.70-4.87); Red Cell Distribution Width 13 % (10-15); White Blood Count 6.1 10^3/uL (3.5-10.8)
[2022-08-07 06:43] LABS: Calcium 8.1 mg/dL (8.6-10.3); eGFR CKD-EPI 92.8 (>60)
[2022-08-07] MEDS: DOXYcycline 100 MG in NS 0.9% 250 ml 250 ML IVPB SCH (08:09)
[2022-08-07] MEDS: Calcium (OSCAL) 500 mg TAB PO SCH (08:10)
[2022-08-07 11:07] LABS: Hematocrit 32 % (35-47); Hemoglobin 11.1 g/dL (12.0-16.0)
[2022-08-07 11:45] VITALS: BP 112/68
[2022-08-07] MEDS: Enoxaparin 40 MG/0.4 ML SYR SUBCUT SCH (15:39)
[2022-08-08 23:06] LABS: Anaplasma phagocytophilum Negative (Negative); B. miyamotoi PCR, B Positive (Negative); Babesia divergens/MO-1 Negative (Negative); Babesia ducani Negative (Negative); Ehrlichia chaffeensis Negative (Negative); Ehrlichia ewingii/canis Negative (Negative); Ehrlichia muris eauclairensis Negative (Negative)
== END 2022-08-07 16:00 | disposition home or self-care (01) | DRG 641 ==
LOC: ED 10:20 → EDHOLD 10:20 → MED 15:57
PROVIDERS: ADMIT Internal Medicine; ATTEND Internal Medicine